=== PATIENT | male | born 1985 | race Caucasian/White ===

== ENCOUNTER → 2024-02-27 | Outpatient (CLI) | payer OTHER, SELFPAY ==
[2024-02-27 16:50] LABS: Absolute Lymphocyte Count 3.21 X10^3/uL (0.83-4.51); Absolute Neutrophil Count 5.5 X10^3/uL (2.0-7.7); Basophil# 0.07 X10^3/uL; Basophil% 0.7 % (0-1); Eosinophil# 0.33 X10^3/uL; Eosinophils% 3.3 % (0-5); Hematocrit 49.3 % (40-54); Hemoglobin 16.1 g/dL (13.0-16.5); Lymphocyte # 3.21 X10^3/ul (0.83-4.51); Lymphocyte % 31.9 % (19-41); Mean Corp Hgb Conc 32.7 g/dL (32-36); Mean Corpuscular Hgb 30.7 pg (27.0-32.0); Mean Corpuscular Volume 93.9 fL (80-94); Monocyte# 0.89 X10^3/uL; Monocyte% 8.9 % (0-10); NRBC Flagged by Analyzer 0 % (0-5); Neutrophil # 5.53 X10^3/uL (2.7-7.7); Platelet Count 277 K/mm3 (150-450); RBC Distribution Width CV 13.2 % (11.6-14.6); RBC Distribution Width SD 45.3 fl (35.1-43.9); Red Blood Count 5.25 M/mm3 (4.6-6.2); White Blood Count 10.1 K/mm3 (4.4-11.0)
[2024-02-27 17:12] LABS: ALB/GLOB Ratio 1.1 RATIO (0.9-2.4); AST(SGOT) 24 U/L (15-37); Alanine Aminotransfer ALT/SGPT 47 U/L (16-61); Albumin, Serum 3.9 g/dL (3.2-5.0); Alkaline Phosphatase 56 U/L (45-117); Anion Gap 6 (5-15); BUN 16 mg/dL (7-18); BUN/Creat Ratio 12.8 RATIO (10-20); Calcium,Total 9.1 mg/dL (8.5-10.1); Chloride 108 mmol/L (98-107); Cholesterol 217 mg/dL (200); Creatinine, Serum 1.25 mg/dL (0.70-1.30); EST Glomerular Filtration Rate 69 mL/min (>60); Est Glom Filt Rate - Afr Amer 84 mL/min (>60); Globulin 3.6 g/dL (2.2-4.2); Glucose 88 mg/dL (74-106); High Density Lipoprotein 53 mg/dL; Potassium 3.7 mmol/L (3.5-5.1); Protein, Total 7.5 g/dL (6.4-8.2); Sodium Level 140 mmol/L (136-145); Thyroid Stim Hormone (TSH) 0.804 uIU/mL (0.358-3.740); Triglycerides 290 mg/dL; Very Low Density Lipoprotein 58 mg/dL (5-40)
[2024-02-27 17:14] LABS: Vitamin B12 426 pg/mL (211-911); Vitamin D,25 Hydroxy 13.4 ng/mL
[2024-02-27 17:25] LABS: Hemoglobin A1c 5.5 % (3.8-5.6)
--- OUTSIDE RECORDS SUMMARY | 2024-02-27 18:39 | XMS RPT_ITS | CCD ---
Author Organization [facility] Care Team Providers Care Medical Resident Name Role Phone SAGE PIMENTEL, DR AJAY Jaramillo Primary Care Physician JOHN TRIMMING DEPARTMENT BLOCKER-EARTH OBSERVATIONS CHIEF SCIENTIST, NURY Godoy Attending Freida ilwenceslao CAZARES MD, DR AJAY Jaramillo Primary Care Mike HAMLINEARTH OBSERVATIONS CHIEF SCIENTIST, NIKUNJ Cody Attending Helder CAZARES MD, DR AJAY Jaramillo Primary Care Mike WALKER, NIKUNJ Cody Attending Helder CAZARES MD, DR AJAY Jaramillo Primary Care Vincent Randolph PA-C Unavailable Urologist Provider Unavailable Unavailable Vitaly PIMENTEL, Dr. Jackson ([place] [facility]) A Unavail able Ivana PIMENTEL, Dr. Pieter Gamino Unavailable Rosalba Roper LPN Unavailable Farheen Woods MA Unavailable Unavailable Sina Waddell MD Unavailable Monique Olea MA Unavailable Unavailable Celeste Whitney RN Unavailable Unavaila sue Calvillo LPN, Danial Unavailable Unavailable Mercy Mei CMA Unavailable Unavailable Leatha Lilly MA Unavailable Unavailable Ajay Cazares MD Unavailable [phone] Unavailable Unavailable VINCENT BANKS Attending Unavailable AJAY CAZARES Consulting Unavailable VINCENT BANKS Admitting Unavailable VINCENT BANKS Primary Care Unavailable PROVIDER, UNKNOWN Consulting Unavailable PROVIDER, UNKNOWN Consulting Unavailable PROVIDER, UNKNOWN Consulting Unavailable Allergies Allergy Classification Reported Allergen(s) Allergy Type Date of Onset Reaction(s) Facility (8 sources) Cortisone *CORTICOSTEROIDS* 11-03-2020 [facility], [facility].; [facility]. Medications Current Medications Medication Drug Class(es) Dates Sig (Normalized) Sig (Original) hydrOXYzine hydrochloride 10 mg oral tablet (11 sources) Antihistamine Start: 06-20-2022 hydrOXYzine hydrochloride 10 mg oral tablet Dose : 20 mg = 2 tab(s), Oral, QID, PRN for anxiety, # 80 tab(s), 0 Refill(s) Start Date: 06/20/22 Status: Ordered Start: 06-07-2022 take 1 tablet by claudio th every six hours as needed for anxiety hydrOXYzine HCl 50 MG Oral Tablet ; 1 (one) Tablet Q6 hours PRN anxiety for 0 days Quantity: 30 {Tablet} Refills: 2 Ordered: 07-Jun-2022 AMY Banks Start: 07-Jun-2022 Completed/Discontinued Medications Medication Drug Class(es) Dates Sig (Normalized) Sig (Original) amoxicillin 500 mg oral tablet (8 sources) Penicillin-class Antibacterial Start: 07-05-2018 End: 07-15-2018 take 2 tablets by mouth once daily Amoxicillin 500 MG Oral Tablet ; 2 (two) Tablet once daily for 10 days Quantity: 20 {Tablet} Refills: 0 Ordered: 05-Jul-2018 MD Sina Waddell Start: 05-Jul-2018 End: 15-Jul-2018 Status: Inactive Comments: pharmacist: once daily strep protocol Comment on above: pharmacist: once jeny ly strep protocol amoxicillin 875 mg / clavulanate 125 mg oral tablet (8 sources) Penicillin-class Antibacterial Start: 01-30-2022 End: 02-06-2022 take 1 tablet by mouth twice daily Amoxicillin-Pot Clavulanate 875-125 MG Oral Tablet ; 1 (one) Tablet two times daily for 7 days Quantity: 14 {Tablet} Refills: 0 Ordered: 30-Jan-2022 AHMET Whitney Start: 30-Jan-2022 End: 06-Feb-2022 Status: Inactive amphetamine aspartate 2.5 mg / amphetamine sulfate 2.5 mg / dextroamphetamine saccharate 2.5 mg / dextroamphetamine sulfate 2.5 mg oral tablet (9 sources) Central Nervous System Stimulant Start: 12-13-2022 End: 01-12-2023 AdderalL 10 mg tablet ; 1 (one) Tablet daily for 30 days Quantity: 30 {Tablet} Refills: 0 Ordered: 13-Dec-2022 AMY Banks Start: 13-Dec-2022 End: 12-Jan-2023 Status: Inactive Comments: [facility] 12/06/2022 Start: 07-30-2022 take 1 tablet by claudio twice daily amphetamine-dextroamphetamine 10 mg oral tablet TAKE ONE TABLET BY MOUTH TWICE DAILY Start Date: 07/30/22 Status: Ordered Comment on above: [facility] 12/06/2022 buPROPion hydrochloride 75 mg oral tablet (16 sources) Aminoketone Start: End: 2 take 1 tablet by mouth once daily buPROPion HCl ER (XL) 150 MG Oral Tablet Extended Release 24 Hour ; 1 (one) Tablet daily for 0 days Quantity: 90 {Tablet} Refills: 3 Ordered: 02-Nov-2021 DONALD Mei Start: 03-Nov-2020 End: 02-Nov-2021 Status: Discontinued Start: 11-03-2020 End: 11-02-2021 take 1 tablet by mouth once daily buPROPion HCl 75 MG Oral Tablet ; 1 (one) Tablet daily for 0 days Quantity: 90 {Tablet} Refills: 3 Ordered: 02-Nov-2021 DONALD Mei Start: 03-Nov-2020 End: 02-Nov-2021 Status: Discontinued busPIRone hydrochloride 10 mg oral tablet (10 sources) Start: 06-07-2022 End: 07-16-2022 take 1 tablet by mouth twice daily busPIRone HCl 10 MG Oral Tablet ; 1 (one) Tablet twice a day for 0 days Quantity: 30 {Tablet} Refills: 2 Ordered: 16-Jul-2022 AHMET Whitney Start: 07-Jun-2022 End: 16-Jul-2022 Status: Discontinued citalopram 20 mg oral tablet (8 sources) Serotonin Reuptake Inhibitor take 1 tablet by mouth once daily Citalopram Hydrobromide 20 MG Oral Tablet ; 1 daily (20 MG) Status: Inactive oxybutynin chloride 5 mg oral tablet (3 sources) Cholinergic Muscarinic Antagonist Start: 06-20-2022 End: 06-20-2022 oxybutynin 5 mg oral tablet Dose : 5 mg = 1 tab(s), Oral, Daily, # 30 tab(s), 3 Refill(s), Pharmacy: [id number], 180.3, cm, 06/20/22 9:59:00 EST, Height Start Date: 06/20/22 Stop Date: 06/20/22 Status: Ordered sulfamethoxazole 800 mg / trimethoprim 160 mg oral tablet (8 sources) Dihydrofolate Reductase Inhibitor Antibacterial, Sulfonamide Antimicrobial Start: 11-02-2021 End: 11-12-2021 take 1 tablet by mouth twice daily Sulfamethoxazole- Trimethoprim 800-160 MG Oral Tablet ; 1 (one) Tablet twice a day for 10 days Quantity: 20 {Tablet} Refills: 0 Ordered: 02-Nov-2021 AMY Banks Start: 02-Nov-2021 End: 12-Nov-2021 Status: Inactive tamsulosin hydrochloride 0.4 mg oral capsule (8 sources) alpha-Adrenergic Adalgisa Start: 11-15-2021 End: 12-15-2021 take 1 capsule by mouth once daily Tamsulosin HCl 0.4 MG Oral Capsule ; 1 (one) Capsule daily for 30 days Quantity: 30 {Capsule} Refills: 0 Ordered: 15-Nov-2021 AMY Banks Start: 15-Nov-2021 End: 15-Dec-2021 Status: Inactive Problems Active Problems Problem Classification Problem Date Documented Da te Episodic/Chronic Anxiety disorders (20 sources) Generalized anxiety disorder; Translations: [Generalized anxiety disorder] 07-22-2023 Chronic Calculus of urinary tract (20 sources) Ureteric stone; Translations: [Kidney stone] 06-20-2022 Episodic Disorders usually diagnosed in infancy, childhood, or adolescence (20 sources) Adult attention deficit hyperactivity disorder ; Translations: [Other specified behavioral and emotional disorders with onset usually occurring in childhood and adolescence] 07-22-2023 Chronic Genitourinary symptoms and ill-defined conditions (20 sources) Nocturia; Translations: [Dysuria] 07-30-2022 Episodic Headache; including migraine (16 sources) Headache; Translations: [Headache] 07-22-2023 Episodic Immunizations and screening for infectious disease (20 sources) Patient encounter status; Translations: [Encounter for immunization] 07-16-2022 Episodic Inflammatory conditions of male genital organs (16 sources) Epididymitis; Translations: [Epididymitis] 07-22-2023 Episodic Mood disorders (20 sources) Depressive disorder; Translations: [Depressive disorder, not elsewhere classified] 07-22-2023 Chronic Other ear and sense organ disorders (8 sources) Impacted cerumen of bilateral ears; Translations: [Impacted cerumen, bilateral] 11-03-2020 Episodic Other lower respiratory disease (16 sources) Snoring; Translations: [Snoring] 07-22-2023 Episodic Other nervous system disorders (3 sources) Chronic pain in male pelvis 06-20-2022 Chronic Other nervous system disorders (16 sources) Bilateral carpal tunnel syndrome; Translations: [Carpal tunnel syndrome, bilateral upper limbs] 07-22-2023 Chronic Other nutritional; endocrine; and metabolic disorders (16 sources) Body mass index 30+ - obesity; Translations: [Body mass index (BMI) 38.0-38.9, adult] 07-22-2023 Chronic Other nutritional; endocrine; and metabolic disorders (20 sources) Body mass index 40+ - severely obese; Translations: [Body mass index (BMI) 40.0-44.9, adult] 11-03-2020 Chronic Other nutritional; endocrine; and metabolic disorders (16 sources) Obesity; Translations: [Obesity, unspecified] 07-22-2023 Chronic Other upper respiratory disease (16 sources) Disorder of nasal sinus; Translations: [Unspecified disorder of nose and nasal sinuses] 07-22-2023 Episodic Other upper respiratory infections (8 sources) Acute pharyngitis; Translations: [Acute pharyngitis, unspecified] 07-05-2018 Episodic Residual codes; unclassified (16 sources) History of vaccination; Translations: [Personal history of other drug therapy] 07-22-2023 Episodic Comment on above: Moderna Residual codes; unclassified (20 sources) FH: Polycystic kidney; Translations: [Family history of polycystic kidney] 07-22-2023 Episodic Residual codes; unclassified (16 sources) Amnesia; Translations: [Other amnesia] 07-22-2023 Episodic Residual codes; unclassified (8 sources) Non-smoker; Translations: [Other specified health status] 07-22-2023 Episodic Residual codes; unclassified (8 sources) Delirium; Translations: [Disorientation, unspecified] 01-25-2022 Episodic Unclassified (8 sources) Follow up for multiple chronic conditions - The patient is here for follow-up of anxiety, depression and other condition(s) (ADD). The patient always takes the prescribed medications. No side effects noted (meds are as needed). The patient has an active lifestyle but no regular exercise program. The patient's dietary compliance is good with close adherance to recommendations. The patient states that weight has decreased (down 6lbs) and in general mood has improved. 12-13-2022 Past or Other Problems Problem Classification Problem Date Documented Da te Episodic/Chronic Hepatitis (8 sources) Hepatitis 06-07-2022 Mood disorders (8 sources) Mood disorders 11-03-2020 Unclassified (8 sources) Snoring - Symptoms include snoring, nocturnal gasping and witnessed nocturnal apnea. The snoring is described as extremely loud, crescendo, gurgling and disruptive to the bed partner. This is described as severe and worsening. Risk factors include obesity. Note for Snoring : Patient does note that his has indicated several episodes of apnea during sleep where the patient will stop breathing before a sudden inspiration. Patient notes concern for increased tiredness as a result of disturbed sleep. Patient also notes that his urinary symptoms will also contribute to his nightly awakenings (urinary frequency and urgency), these issues are currently being managed by his urologist who encouraged patient to obtain a sleep study. Patient also notes concern for obesity stating that he believes his snoring and sleep have worsened as a result of weight gain. Patient states he has tried on and off to lose weight with regular exercise and various diets with minimal to no success over the past 3 years. Patient would like to discuss medication options if possible. Patient states that he previously took Adderall for ADHD which helped his difficulty with attention as well as assisted with weight loss, however he was unable to tolerate adverse effects of irritability. 07-22-2023 Unclassified (8 sources) Follow up for chronic condition - The patient is here for follow-up of anxiety and depression. The patient has stopped the recommended medications (he recently stopped taking buspirone due to feeling that he was zoned out and was just there, also he had suicidal thoughts but no attempts. Appetite was increased and he gained some weight. He noticed a lack of motivation and was more depressed. 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 The patient engages in regular exercise program 1-3 times per week (is going back to the gym about 3 times a week). The patient's out of office blood pressure checks occur frequently (been normal about 120-130/80-90). The patient states that there is no recent angina or dyspnea, there are no vision changes or weakness and they do not have headaches. Note for Chronic condition follow-up : Years ago, he was on Adderall 10mg. He had leftover pills. He started taking the Adderall 2 pills daily about 1 week ago. States that it is a night and day difference . He has more energy and feels more like myself and able to focus on what I need to do . He sees a therapist every few months. 07-16-2022 Unclassified (8 sources) F/U meds - Pt is not taking any meds now. Pt said it has been over a year since taking medication. Pt went back to school and needs something to keep himself focused on his school. Pt wants a refill on meds or to maybe change medication. 05-18-2022 Unclassified (8 sources) Well adult male - The patient feels well with no complaints, has good energy level and is sleeping well. The current method of contraception is condom-male. The patient has a balanced diet and takes supplemental vitamins. The patient exercises weekly (cross fit 4-5 week). The patient sleeps 6 hours per night. The patient's libido is absent. 04-05-2022 Unclassified (8 sources) Headache - The onset of the headache has been acute and has been occurring in a persistent pattern for weeks. The course has been increasing in severity. The headache is characterized as deep pain. The headache is described as being located in the frontal area. Note for Headache : Episode of confusion and agitation yesterday for about 30 minutes. Denies slurred speech or LOC. 01-25-2022 Unclassified (8 sources) Follow up - Here for follow up epididmytis. Continues to have the urgency of urinating. The symptoms are worse at bedtime. 11-16-2021 Unclassified (8 sources) UTI - Symptoms include urinary frequency (worst at night), malodorous urine (Saturday into Saturday) and flank pain, but do not include dysuria, urinary urgency, hematuria, dark urine, abdominal pain or back pain. The pain is located in the left flank and in the right flank. The patient describes the pain as burning. Onset was gradual 1 month(s) ago. There is no known event that preceded symptom onset. The patient describes this as worsening. Associated symptoms do not include fever, chills, nausea, vomiting, urinary incontinence, urinary retention, urinary hesitancy, nocturia, urethral discharge or vaginal discharge. Risk factors do not include indwelling catheter, fecal incontinence, current , menopause or diaphragm use. Note for UTI : feeling dizzy, lack of energy and lack of sex drive. 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 The patient takes no supplemental vitamins & iron. The patient exercises every other day and daily (Crossfit and running). The patient sleeps 4 hours per night. 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 The patient does not exercise. 12-23-2019 Unclassified (8 sources) Hand pain - The onset of the hand pain has been gradual and has been occurring in a persistent pattern for 2 years. The course has been increasing. The hand pain is characterized as a moderate. Note for Hand pain : -Numbness and tingling in both hands. R>L. Right hand dominant. 08-27-2018 Unclassified (8 sources) Cold Symptoms - Symptoms include nasal congestion, runny nose, ear pain, ear fullness, sore throat, scratchy throat, dry cough, productive cough, fever (low grade), chills and headache. The onset was gradual 2 day(s) ago. The symptoms occur constantly. The patient describes this as moderate in severity and worsening. Current treatment includes an oral decongestant. Risk factors do not include child in daycare or smoking. The patient has been exposed to an individual with similar symptoms and an individual with strep, but has not been exposed to an individual with a cough or an individual with an upper respiratory infection. 07-05-2018 Unclassified (8 sources) Well adult male - The patient feels well with no complaints, has good energy level and is sleeping well. The patient takes no supplemental vitamins & iron. The patient exercises 3 - 4 times per week. The patient sleeps 8 hours per night. 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 The patient takes no supplemental vitamins & iron. The patient exercises every other day and daily (Crossfit and running). The patient sleeps 4 hours per night. 11-03-2020 Results Test Name Value Interpretation Reference Range Facility US RENALon 07-20-2022 US RENAL ORIGINAL EXAMINATION: LIMITED RETROPERITONEAL ULTRASOUND07/18/2022 3:17 pm Ultrasound retroperitoneum Complete: Attention Urinary tract COMPARISON: None available HISTORY: ORDERING SYSTEM PROVIDED HISTORY: Reason for Exam: follow-up ureteral stone, history of left ureteral stone, follow-up FINDINGS: Right kidney: 12.6 x 5.8 x 5.6 cm Left kidney: 12.2 x 5.7 x 5.7 cm The kidneys are normal in cortical thickness and echogenicity. No pelvocaliectasis, complex cystic or solid mass is seen. No renal stone is visualized . There is no free fluid seen in the abdomen. Urinary bladder is less than optimally distended but otherwise unremarkable. No abnormal wall thickening or stone. Likely artifact versus minimal debris in its dependent portion. Bladder volume is 137 cc. Postvoid volume is only 2 cc. The prostate is not significantly enlarged.. IMPRESSION: No obstruction or acute abnormality in the kidneys. . Interpreted by: Jovan Mckeon MD Preliminary Report By: Jovan Mckeon MD Electronically signed By Jovan Mckeon MD Dictated Date: 07/20/2022 8:44:46 AM Prelim Date: 07/20/2022 8:46:12 AM Sign Date: 07/20/2022 8:46:12 AM Ordering Provider: NIKUNJ Pendleton [facility] ([place]) No Panel Informationon 04-24 SKIN TEST INTRADERMAL TB Normal [facility] HEPATITIS B SURFACE AB IMMUN ITY, QNon 12-15-2022 HEPATITIS B SURFACE AB IMMUNITY, QN <5 Low > OR = 10 [facility] Comment on above: Result Comment: Patient does not have immunity to hepatitis B virus. For additional information, please refer to http://Poppin.[employer] Media/faq/IGI185 (This link is being provided for informational/ educational purposes only). Performed By: #### [id number] #### [facility] [address], [address] [place] [address] Karate Teacher: David Scott MD #### [id number] #### [facility], [address] [place] [address] Karate Teacher: Misty Grossman MD,PhD,GALEN MEASLES, MUMPS, AND RUBELLA (MMR) AB (IGG) PANEL, IMMUNE STATUSon 04-12-2022 MEASLES AB (IGG), IMMUNE STATUS 62.90 AU/mL Normal [facility] Comment on above: Result Comment: AU/m L Interpretation ----- <13.50 Not consistent with immunity 13.50-16.49 Equivocal >16.49 Consistent with immunity The presence of measles IgG suggests immunization or past or current infection with measles virus. For additional information, please refer to http://Poppin.CWR Mob[employer]/faq/GMD852 (This link is being provided for informational/ educational purposes only.) Performed By: #### [id number] #### [facility] [address], [address] [place] [address] Karate Teacher: David Scott MD #### [id number] #### [facility], [address] [place] [address] Karate Teacher: Misty Grossman MD,PhD,GALEN MUMPS VIRUS AB (IGG), IMMUNE STATUS <9.00 Low [facility] Comment on above: Result Comment: AU/m L Interpretation ------- <9.00 Not consistent with immunity 9.00-10.99 Equivocal >10.99 Consistent with immunity The presence of mumps IgG antibody suggests immunization or past or current infection with mumps virus. Performed By: #### [id number] #### [facility] [address], [address] [place] [address] Karate Teacher: David Scott MD #### [id number] #### [facility], [address] [place] [address] Karate Teacher: Misty Grossman MD,PhD,GALEN RUBELLA AB (IGG), IMMUNE STATUS 3.27 Index Normal [facility] Comment on above: Result Comment: Inde x Interpretation ----- <0.90 Not consistent with immunity 0.90-0.99 Equivocal > or = 1.00 Consistent with immunity The presence of rubella IgG antibody suggests immunization or past or current infection with rubella virus. Performed By: #### [id number] #### [facility] [address], [address] [place] [address] Karate Teacher: David Scott MD #### [id number] #### [facility], [address] [place] [id number] Karate Teacher: Misty Grossman MD,PhD,GALEN VARICELLA ZOSTER VIRUS AB (I MMUNITY SCR),ACIF (S)on 04-12-2022 VARICELLA ZOSTER VIRUS AB (IMMUNITY SCR),ACIF (S) > or = 1:4 Normal [facility] Comment on above: Result Comment: REFERENCE RANGE: > or = 1:4 <1:4 Antibody Not Detected - evidence for susceptibility to VZV infection. > or = 1:4 Antibody Detected - evidence for immunity against VZV infection. A positive titer (greater than or equal to 1:4) indicates a history of VZV infection or vaccination. In infected individuals, this test is usually positive within 2 days after the onset of rash and is therefore positive for life. The absence of detectable antibody may indicate susceptibility to VZV infection. This test was developed and its analytical performance characteristics have been determined by [employer]. It has not been cleared or approved by FDA. This assay has been validated pursuant to the CLIA regulations and is used for clinical purposes. Performed By: #### [id number] #### [facility] [address], [address] [place] [address] Karate Teacher: David Scott MD #### [id number] #### [facility], [address] [place] [address] Karate Teacher: Misty Grossman MD,PhD,GALEN No Panel Informationon 04-10 SKIN TEST INTRADERMAL TB Normal [facility]; [facility] No Panel Informationon 04-05 HEPATITIS B SURFACE AB IMMUNITY, QN <5 Abnormal [facility]; [facility]. MEASLES AB (IGG), IMMUNE STATUS 62.90 AU/mL Normal [facility]; [facility], [facility]. MUMPS VIRUS AB (IGG), IMMUNE STATUS <9.00 Abnormal [facility]; [facility], [facility]. RUBELLA AB (IGG), IMMUNE STATUS 3.27 {Index} Normal [facility]; [facility]. VARICELLA ZOSTER VIRUS AB (IMMUNITY SCR),ACIF (S) > or = 1:4 Normal [facility].; [place] [facility]. Laboratory - Chemistry and C hemistry - challengeon 11-15-2021 Bilirubin Ql (U) Negative Normal [facility], [facility].; [facility], [facility]. Ketones Ql (U) Negative Normal [facility].; [place] [facility], [facility]. pH (U) 7.0 [pH] Normal [facility].; [facility], [facility]. Specific gravity (U) [Rel density] 1.025 Normal [facility], [facility].; [place] [employer], [facility]. Urobilinogen Qn (U) 0.2 mg/dL Normal [facility] [facility], [facility].; [facility], [facility]. Laboratory - Hematology and Cell countson 11-15-2021 Hemoglobin Ql (U) Negative Normal [facility].; [employer]. Laboratory - Specimen inform ationon 11-15-2021 Appearance (U) Clear Normal [facility].; [email or web address], [facility]. Color (U) Yellow Normal [place] [employer].; [employer]. Laboratory - Urinalysison Glucose Test strip (U) [Mass/Vol] Negative Normal [place] [employer].; [email or web address], [facility]. Leukocyte esterase Test strip Ql (U) Negative Normal [place] [employer].; [employer]. Nitrite Ql (U) Negative Normal [facility].; [employer]. Protein Ql (U) Negative Normal [facility].; [employer]. PSA, TOTALon 11-03-2021 PSA, TOTAL 0.60 ng/mL Normal < OR = 4.00 [facility] Comment on above: Result Comment: The total PSA value from this assay system is standardized against the WHO standard. The test result will be approximately 20% lower when compared to the equimolar-standardized total PSA ([place]). Comparison of serial PSA results should be interpreted with this fact in mind. This test was performed using the Siemens chemiluminescent method. Values obtained from different assay methods cannot be used interchangeably. PSA levels, regardless of value, should not be interpreted as absolute evidence of the presence or absence of disease. Performed By: #### [id number] #### [facility] [address], [address] [place] [id number] Karate Teacher: David Scott MD Laboratory - Chemistry and C hemistry - challengeon 11-02-2021 Bilirubin Ql (U) Negative Normal [facility].; [employer]. Ketones Ql (U) Negative Normal [facility].; [employer] pH (U) 5.5 [pH] Normal [employer].; [employer], [facility]. Specific gravity (U) [Rel density] 1.030 Abnormal [employer].; [employer]. Urobilinogen Qn (U) 0.2 mg/dL Normal [facility].; [employer]. Laboratory - Hematology and Cell countson 11-02-2021 Hemoglobin Ql (U) Negative Normal [facility] [employer].; [employer]. Laboratory - Specimen inform ationon 11-02-2021 Appearance (U) Clear Normal [facility].; [employer]. Color (U) Yellow Normal [facility] [employer].; [employer]. Laboratory - Urinalysison Glucose Test strip (U) [Mass/Vol] Negative Normal [facility] [employer].; [employer]. Leukocyte esterase Test strip Ql (U) Negative Normal [facility] [employer].; [email or web address], [facility]. Nitrite Ql (U) Negative Normal [facility].; [employer]. Protein Ql (U) Negative Normal [facility].; [email or web address], [facility]. No Panel Informationon 11-02 PSA, TOTAL 0.60 ng/mL Normal [facility] [employer] [facility].; [employer]. Laboratory - Chemistry and C hemistry - challengeon 12-23-2019 Calcium [Mass/Vol] 9.8 mg/dL Normal 8.6 - 10. 3 mg/dL [facility].; [email or web address], [facility]. Chloride [Moles/Vol] 104 mmol/L Normal 98 - 110 mmol/L [facility] [employer] [facility].; [employer]. Cholesterol [Mass/Vol] 202 mg/dL Abnormal [facility] [employer] [facility].; [email or web address], [facility]. Cholesterol in HDL [Mass/Vol] 54 mg/dL Normal [employer]etteRipple[employer] [facility].; [email or web address], [facility]. Cholesterol in LDL [Mass/Vol] 122 mg/dL Abnormal [facility] [employer] [facility].; [email or web address], [facility]. CO2 [Moles/Vol] 29 mmol/L Normal 20 - 32 mmol/L [facility].; [email or web address], [facility]. Creatinine [Mass/Vol] 1.10 mg/dL Normal 0.60 - 1.35 mg/dL [facility]; [facility], [facility] GFR/1.73 sq M.predicted among blacks MDRD (S/P/Bld) [Vol rate/Area] 102 mL/min/{1.73_m2} Normal [facility]; [facility], [facility] Glucose [Mass/Vol] 97 mg/dL Normal 65 - 99 mg/dL [facility]; [facility], [facility] Potassium [Moles/Vol] 4.4 mmol/L Normal 3.5 - 5.3 mmol/L [facility]; [facility], [facility] Sodium [Moles/Vol] 140 mmol/L Normal 135 - 146 mmol/L [facility]; [facility], [facility] Triglyceride [Mass/Vol] 146 mg/dL Normal [facility]; [facility], [facility] Urea nitrogen [Mass/Vol] 15 mg/dL Normal 7 - 25 mg/dL [facility]; [facility], [facility] Laboratory - Hematology and Cell countson 12-23-2019 HbA1c (Bld) [Mass fraction] 5.4 % Normal [facility]; [facility], [facility] No Panel Informationon 12-22 BUN/CREATININE RATIO NOT APPLICABLE Normal 6 - 22 [facility]; [facility], [facility] CHOL/HDLC RATIO 3.7 Normal [facility]; [facility] eGFR NON-AFR. MALDIVIAN 88 Normal [facility]; [facility], [facility] NON HDL CHOLESTEROL 148 Abnormal [facility]; [facility], [facility] Vital Signs Date Time Vital Sign Value Performing Clinician Facility 07-22-2023 08:15-0400 Body height 179.07 cm Danial Calvillo LPN [facility].; [facility], [facility] 07-22-2023 08:15-0400 Body mass index (BMI) [Ratio] 42.58 kg/m2 Danial Calvillo LPN [facility].; [facility], [facility] 07-22-2023 08:15-0400 Body surface area Derived from formula 2.5 m2 Danial Calvillo RUBIO [facility], [facility].; [facility], [facility]. 07-22-2023 08:15-0400 Body weight 136.53 kg Danial Calvillo LPN [facility], [facility].; [facility], [facility]. 07-22-2023 08:15-0400 Diastolic blood pressure 70 mm[Hg] Danial Calvillo LPN [facility] [employer] [facility], Inc[facility] Comment on above: Patient Position: Sitting; Cuff Location : Left Arm; Cuff Size: Standard 07-22-2023 08:15-0400 Heart rate 64 /min Danial Calvillo [facility], [facility].; [facility] [employer] [facility], [facility]. Comment on above: Pattern: Regular 07-22-2023 08:15-0400 Systolic blood pressure 107 mm[Hg] Danial Calvillo ANTENNA ENGINEER [facility], [facility].; [facility] [employer] [facility], [facility]. Comment on above: Patient Position: Sitting; Cuff Location : Left Arm; Cuff Size: Standard 12-13-2022 07:59-0400 Body height 179.07 cm Farheen Woods MA [facility], [facility].; [facility] [employer] [facility], [facility]. 12-13-2022 07:59-0400 Body mass index (BMI) [Ratio] 41.59 kg/m2 Farheen Woods MA [facility], [facility].; [facility] [employer] [facility], [facility]. 12-13-2022 07:59-0400 Body surface area Derived from formula 2.47 m2 Farheen Woods MA [facility], [facility].; [facility], [facility]. 12-13-2022 07:59-0400 Body weight 133.36 kg Farheen Woods MA [facility], [facility].; [employer] [employer] [facility], [facility]. 12-13-2022 07:59-0400 Diastolic blood pressure 74 mm[Hg] Farheen Woods MA [facility], [facility].; [employer] [employer] [facility], [facility]. Comment on above: Patient Position: Sitting; Cuff Location : Left Arm; Cuff Size: Standard 12-13-2022 07:59-0400 Heart rate 59 /min Farheen Woods MA [facility], [facility].; BurnetteAl[employer] [facility]. Comment on above: Pattern: Regular 12-13-2022 07:59-0400 Systolic blood pressure 124 mm[Hg] Farheen Woods MA [facility].; [facility] [employer] [facility]. Comment on above: Patient Position: Sitting; Cuff Location : Left Arm; Cuff Size: Standard 07-16-2022 10:28-0400 Body height 179.07 cm Celeste Whitney RN [facility].; [facility] [employer] [facility] TownshipHy[facility] Pharmaceutical [facility]. 07-16-2022 10:28-0400 Body mass index (BMI) [Ratio] 42.58 kg/m2 Celeste Whitney RN [facility] Pharm[facility].; [facility] [employer] [facility] Pharm[facility]. 07-16-2022 10:28-0400 Body surface area Derived from formula 2.5 m2 Celeste Whitney RN [facility].; [place] [employer] [facility]. 07-16-2022 10:28-0400 Body weight 136.53 kg Celeste Whitney RN [facility] [employer] [facility].; [employer]. 07-16-2022 10:28-0400 Diastolic blood pressure 75 mm[Hg] Celeste Whitney RN [facility] [employer] [facility].; [employer]. Comment on above: Patient Position: Sitting; Cuff Location : Left Arm; Cuff Size: Standard 07-16-2022 10:28-0400 Heart rate 64 /min Celeste Whitney RN [facility] [employer] [facility].; [employer]. Comment on above: Pattern: Regular 07-16-2022 10:28-0400 Systolic blood pressure 118 mm[Hg] Celeste Whitney RN [facility] [employer] [facility].; [employer]. Comment on above: Patient Position: Sitting; Cuff Location : Left Arm; Cuff Size: Standard 06-07-2022 10:10-0500 Body height 179.07 cm Leatha Lilly [facility].; [facility] [employer]. 06-07-2022 10:10-0500 Body mass index (BMI) [Ratio] 42.72 kg/m2 Leatha Lilly MA [facility] [employer] [facility].; [facility] [employer]. 06-07-2022 10:10-0500 Body surface area Derived from formula 2.5 m2 Leatha Lilly MA [facility], [facility].; [facility] [employer] [facility] TownshipHy[facility] Pharmaceutical [facility]. 06-07-2022 10:10-0500 Body weight 136.99 kg Leatha Lilly MA [facility].; [facility] [employer] 06-07-2022 10:10-0500 Diastolic blood pressure 69 mm[Hg] Leatha Lilly MA [facility], [facility].; [place] [employer]. Comment on above: Patient Position: Sitting; Cuff Location : Left Arm; Cuff Size: Standard 06-07-2022 10:10-0500 Heart rate 58 /min Leatha Lilly MA [facility], [facility].; [employer] [employer]. Comment on above: Pattern: Regular 06-07-2022 10:10-0500 Systolic blood pressure 113 mm[Hg] Leatha Lilly MA [facility] Pharm[facility].; [place] [employer]. Comment on above: Patient Position: Sitting; Cuff Location : Left Arm; Cuff Size: Standard 05-18-2022 09:15-0500 Body height 179.07 cm Farheen Woods MA [facility], [facility].; [employer] [facility], [facility]. 05-18-2022 09:15-0500 Body mass index (BMI) [Ratio] 43 kg/m2 Farheen Woods MA [facility], [facility].; [place] [employer] 05-18-2022 09:15-0500 Body surface area Derived from formula 2.51 m2 Farheen Woods MA [facility] Pharmaceutical [facility].; [facility] [employer] [facility]. 05-18-2022 09:15-0500 Body weight 137.89 kg Farheen Woods MA [facility].; [place] [employer]. 05-18-2022 09:15-0500 Diastolic blood pressure 78 mm[Hg] Farheen Woods MA [facility].; [employer]. Comment on above: Patient Position: Sitting; Cuff Location : Left Arm; Cuff Size: Standard 05-18-2022 09:15-0500 Heart rate 48 /min Farheen Woods MA [facility].; [employer]. Comment on above: Pattern: Regular 05-18-2022 09:15-0500 Systolic blood pressure 127 mm[Hg] Farheen Woods MA [facility].; [employer]. Comment on above: Patient Position: Sitting; Cuff Location : Left Arm; Cuff Size: Standard 04-05-2022 09:50-0500 Body height 179.07 cm Monique Olea MA [facility] HospitalHybio Pharmaceutical Inc.; [employer]. 04-05-2022 09:50-0500 Body mass index (BMI) [Ratio] 42.58 kg/m2 Monique Olea [facility].; [employer]. 04-05-2022 09:50-0500 Body surface area Derived from formula 2.5 m2 Monique Olea MA [facility].; [email or web address], [facility]. 04-05-2022 09:50-0500 Body weight 136.53 kg Monique Olea MA [facility].; [employer]. 04-05-2022 09:50-0500 Diastolic blood pressure 84 mm[Hg] Monique Olea MA [facility].; [employer]. Comment on above: Patient Position: Sitting; Cuff Location : Left Arm; Cuff Size: Standard 04-05-2022 09:50-0500 Heart rate 51 /min Monique Olea MA [facility] [employer] [facility].; [employer]. Comment on above: Pattern: Regular 04-05-2022 09:50-0500 Systolic blood pressure 132 mm[Hg] Monique Olea MA [facility] [employer] [facility].; [employer]. Comment on above: Patient Position: Sitting; Cuff Location : Left Arm; Cuff Size: Standard 01-25-2022 13:49-0400 Body height 179.07 cm [facility] [employer] [facility].; [email or web address], [facility]. 01-25-2022 13:49-0400 Body mass index (BMI) [Ratio] 42.15 kg/m2 [facility] HospitalAl[facility] Energy [facility] TownshipHybio Pharmaceutical Inc.; [email or web address], Inc[employer] 01-25-2022 13:49-0400 Body surface area Derived from formula 2.49 m2 [facility] HospitalAltaRock Energy [facility].; [employer]. 01-25-2022 13:49-0400 Body weight 135.17 kg [facility].; [employer]. 01-25-2022 13:49-0400 Diastolic blood pressure 68 mm[Hg] [facility] [employer] [facility].; [employer]. Comment on above: Patient Position: Sitting; Cuff Location : Left Arm; Cuff Size: Large 01-25-2022 13:49-0400 Heart rate 71 /min [facility].; [employer]. Comment on above: Pattern: Regular 01-25-2022 13:49-0400 Systolic blood pressure 108 mm[Hg] [facility] [employer].; [employer]. Comment on above: Patient Position: Sitting; Cuff Location : Left Arm; Cuff Size: Large 11-15-2021 14:36-0400 Body height 179.07 cm [facility].; [employer]. 11-15-2021 14:36-0400 Body mass index (BMI) [Ratio] 42.44 kg/m2 [facility] [employer] [facility] [employer].; [employer], [facility]. 11-15-2021 14:36-0400 Body surface area Derived from formula 2.49 m2 [facility] [employer] [facility] [employer].; [employer]. 11-15-2021 14:36-0400 Body weight 136.08 kg [facility] [employer] [facility] [employer].; [employer]. 11-15-2021 14:36-0400 Diastolic blood pressure 70 mm[Hg] [facility] [employer].; [employer]. Comment on above: Patient Position: Sitting; Cuff Location : Right Arm; Cuff Size: Large 11-15-2021 14:36-0400 Heart rate 53 /min [facility].; [employer]. Comment on above: Pattern: Regular 11-15-2021 14:36-0400 Systolic blood pressure 130 mm[Hg] [facility].; [employer]. Comment on above: Patient Position: Sitting; Cuff Location : Right Arm; Cuff Size: Large 11-02-2021 14:39-0400 Body height 179.07 cm [facility].; [employer]. 11-02-2021 14:39-0400 Body mass index (BMI) [Ratio] 42.44 kg/m2 [facility].; [employer]. 11-02-2021 14:39-0400 Body surface area Derived from formula 2.49 m2 [facility] [employer] [facility].; [employer]. 11-02-2021 14:39-0400 Body temperature 98.9 [degF] [facility] [employer] [facility] [employer].; [employer]. Comment on above: Method: Tympanic 11-02-2021 14:39-0400 Body weight 136.08 kg [facility].; [employer]. 11-02-2021 14:39-0400 Diastolic blood pressure 75 mm[Hg] [facility] [employer] [facility].; [employer]. Comment on above: Patient Position: Sitting; Cuff Location : Left Arm; Cuff Size: Large 11-02-2021 14:39-0400 Heart rate 78 /min [facility] [employer] [facility].; [employer]. Comment on above: Pattern: Regular 11-02-2021 14:39-0400 Systolic blood pressure 118 mm[Hg] [facility] [employer] [facility].; [employer]. Comment on above: Patient Position: Sitting; Cuff Location : Left Arm; Cuff Size: Large 11-03-2020 09:34-0400 Body height 179.07 cm [facility] Work Phone: [facility] [employer] [facility].; [employer]. 11-03-2020 09:34-0400 Body mass index (BMI) [Ratio] 38.19 kg/m2 [facility] Work Phone: [place] [employer].; [employer]. 11-03-2020 09:34-0400 Body surface area Derived from formula 2.38 m2 Rosalba Judson ANTENNA ENGINEER Work Phone: [place] [employer].; [employer]. 11-03-2020 09:34-0400 Body weight 122.47 kg Rosalba Judson ANTENNA ENGINEER Work Phone: [employer].; [employer]. 11-03-2020 09:34-0400 Diastolic blood pressure 82 mm[Hg] Rosalba Judson ANTENNA ENGINEER Work Phone: [employer].; [employer]. Comment on above: Patient Position: Sitting; Cuff Location : Left Arm; Cuff Size: Large 11-03-2020 09:34-0400 Heart rate 69 /min Rosalba Judson ANTENNA ENGINEER Work Phone: [employer] [employer]; [employer]. Comment on above: Pattern: Regular 11-03-2020 09:34-0400 Systolic blood pressure 136 mm[Hg] Rosalba Judson ANTENNA ENGINEER Work Phone: [place] [employer].; [employer]. Comment on above: Patient Position: Sitting; Cuff Location : Left Arm; Cuff Size: Large 12-23-2019 09:44-0400 Body height 179.07 cm Rosalba Judson ANTENNA ENGINEER Work Phone: [employer].; [employer]. 12-23-2019 09:44-0400 Body mass index (BMI) [Ratio] 42.3 kg/m2 Rosalba Judson ANTENNA ENGINEER Work Phone: [employer].; [employer]. 12-23-2019 09:44-0400 Body surface area Derived from formula 2.49 m2 Rosalba Judson ANTENNA ENGINEER Work Phone: [employer].; [employer]. 12-23-2019 09:44-0400 Body weight 135.63 kg Rosalba Judson ANTENNA ENGINEER Work Phone: [employer].; [employer]. 12-23-2019 09:44-0400 Diastolic blood pressure 62 mm[Hg] Rosalba Roper LPN Work Phone: [employer].; [employer]. Comment on above: Patient Position: Sitting; Cuff Location : Left Arm; Cuff Size: Large 12-23-2019 09:44-0400 Heart rate 57 /min Rosalba Roper LPN Work Phone: [employer].; [employer]. Comment on above: Pattern: Regular 12-23-2019 09:44-0400 Systolic blood pressure 117 mm[Hg] Rosalba Roper LPN Work Phone: [employer].; [employer]. Comment on above: Patient Position: Sitting; Cuff Location : Left Arm; Cuff Size: Large 08-27-2018 15:22-0400 Body height 179.07 cm Rosalba Roper ANTENNA ENGINEER Work Phone: [employer].; [employer]. 08-27-2018 15:22-0400 Body mass index (BMI) [Ratio] 41.02 kg/m2 Rosalbazachary Roper ANTENNA ENGINEER Work Phone: [employer].; [employer]. 08-27-2018 15:22-0400 Body surface area Derived from formula 2.46 m2 Rosalba Judson ANTENNA ENGINEER Work Phone: [employer].; [employer]. 08-27-2018 15:22-0400 Body weight 131.54 kg Rosalba Judson ANTENNA ENGINEER Work Phone: [employer].; [employer]. 08-27-2018 15:22-0400 Diastolic blood pressure 83 mm[Hg] Rosalba Judson ANTENNA ENGINEER Work Phone: [employer].; [employer]. Comment on above: Patient Position: Sitting; Cuff Location : Left Arm; Cuff Size: Standard 08-27-2018 15:22-0400 Systolic blood pressure 128 mm[Hg] Rosalba Roper LPN Work Phone: [employer]; [employer]. Comment on above: Patient Position: Sitting; Cuff Location : Left Arm; Cuff Size: Standard 07-05-2018 08:29-0500 Body height 179.07 cm Luke Vida PA-C Work Phone: [employer]; [employer]. 07-05-2018 08:29-0500 Body mass index (BMI) [Ratio] 41.87 kg/m2 Luke Vida PA-C Work Phone: [employer]; [employer]. 07-05-2018 08:29-0500 Body surface area Derived from formula 2.48 m2 Luke Vida PA-C Work Phone: [employer]; [employer]. 07-05-2018 08:29-0500 Body temperature 100.9 [degF] Luke Vida PA-C Work Phone: [employer].; [employer]. 07-05-2018 08:29-0500 Body weight 134.27 kg Luke Vida PA-C Work Phone: [employer]; [employer]. 07-05-2018 08:29-0500 Diastolic blood pressure 106 mm[Hg] Luke Vida PA-C Work Phone: [employer].; [employer]. Comment on above: Patient Position: Sitting; Cuff Location : Left Arm; Cuff Size: Standard 07-05-2018 08:29-0500 Heart rate 109 /min Luke Vida PA-C Work Phone: [employer]; [employer] Comment on above: Pattern: Regular 07-05-2018 08:29-0500 Inhaled oxygen concentration 20 % Luke Vida PA-C Work Phone: [employer].; [employer]. Comment on above: Room air 07-05-2018 08:29-0500 Inhaled oxygen concentration 21 % Luke Vida PA-C Work Phone: [employer].; [employer]. Comment on above: Room air 07-05-2018 08:29-0500 SaO2% (BldA) [Mass fraction] 99 % LuMeizuVida PA-C Work Phone: [employer].; [employer]. 07-05-2018 08:29-0500 Systolic blood pressure 141 mm[Hg] Luke Vida PA-C Work Phone: [employer].; [employer]. Comment on above: Patient Position: Sitting; Cuff Location : Left Arm; Cuff Size: Standard 05-28-2018 14:22-0500 Body height 179.07 cm [employer] Work Phone: [employer]; [employer]. 05-28-2018 14:22-0500 Body mass index (BMI) [Ratio] 41.87 kg/m2 [employer] Work Phone: [employer]; [employer]. 05-28-2018 14:22-0500 Body surface area Derived from formula 2.48 m2 [employer]albatimeplazza Work Phone: [employer]. 05-28-2018 14:22-0500 Body weight 134.27 kg Rosalba Revelens ANTENNA ENGINEER Work Phone: [employer]. 05-28-2018 14:22-0500 Diastolic blood pressure 78 mm[Hg] [employer]la[employer] ANTENNA ENGINEER Work Phone: [employer]; [employer]. Comment on above: Patient Position: Sitting; Cuff Location : Left Arm; Cuff Size: Large 05-28-2018 14:22-0500 Heart rate 63 /min Rosalba Roper ANTENNA ENGINEER Work Phone: [employer]; [employer] Comment on above: Pattern: Regular 05-28-2018 14:22-0500 Systolic blood pressure 137 mm[Hg] Rosalba Roper ANTENNA ENGINEER Work Phone: [employer]; [employer] Comment on above: Patient Position: Sitting; Cuff Location : Left Arm; Cuff Size: Large Encounters Encounter Date Encounter Type Care Provider Facility Start: 08-15-2023 ambulatory VINCENT BANKS [facility] Start: 07-22-2023 End: 07-22-2023 Office outpatient visit 25 minutes Luke Vida PA-C Work Phone: [employer] Start: 12-13-2022 End: 12-13-2022 Office outpatient visit 15 minutes Luke Vida PA-C Work Phone: [employer] Start: 07-30-2022 End: 07-31-2022 ambulatory NURY LOPEZ TRIMMING DEPARTMENT BLOCKER-EARTH OBSERVATIONS CHIEF SCIENTIST Facility:A Start: 07-30-2022 End: 07-30-2022 Patient encounter procedure NURY Godoy JOHN TRIMMING DEPARTMENT BLOCKER-EARTH OBSERVATIONS CHIEF SCIENTIST [facility] Start: 07-18-2022 End: 07-19-2022 ambulatory NIKUNJ Escobar AGATHA TRIMMING DEPARTMENT BLOCKER-EARTH OBSERVATIONS CHIEF SCIENTIST Facility:B Start: 07-18-2022 End: 07-18-2022 Patient encounter procedure NIKUNJ M AGATHA TRIMMING DEPARTMENT BLOCKER-EARTH OBSERVATIONS CHIEF SCIENTIST [facility] Start: 07-16-2022 End: 07-16-2022 Office outpatient visit 15 minutes Luke Vida PA-C Work Phone: [employer] Start: 06-20-2022 End: 06-21-2022 ambulatory NIKUNJMIGUEL SNIDER TRIMMING DEPARTMENT BLOCKER-EARTH OBSERVATIONS CHIEF SCIENTIST Facility:A Start: 06-20-2022 End: 06-20-2022 Patient encounter procedure NIKUNJ SNIDER TRIMMING DEPARTMENT BLOCKER-EARTH OBSERVATIONS CHIEF SCIENTIST [facility] Start: 06-14-2022 End: 06-14-2022 Orders Luke Vida PA-C Work Phone: [employer]. Start: 06-14-2022 End: 06-14-2022 Historical Summary Luke Vida PA-C Work Phone: [employer] Start: 06-07-2022 End: 06-07-2022 Office outpatient visit 15 minutes Luke Vida PA-C Work Phone: [employer] Start: 05-18-2022 End: 05-18-2022 Office outpatient visit 15 minutes Luke Vida PA-C Work Phone: [employer] Start: 04-24-2022 End: 04-24-2022 Nursing evaluation of patient and report Luke Vida PA-C Work Phone: [employer] Start: 04-12-2022 End: 04-12-2022 Orders Luke Vida PA-C Work Phone: [employer] Start: 04-10-2022 End: 04-10-2022 Nursing evaluation of patient and report Luke Vida PA-C Work Phone: [employer] Start: 04-05-2022 End: 04-05-2022 Patient encounter status Luke Vida PA-C Work Phone: [employer]; [employer]. Start: 04-05-2022 End: 04-05-2022 Periodic preventive med est patient 18-39 yrs Luke Vida PA-C Work Phone: [employer] Start: 04-05-2022 End: 04-05-2022 Physical examination Luke Vida PA-C Work Phone: [employer]; [employer]. Start: 01-30-2022 End: 01-30-2022 Medication Luke Vida PA-C Work Phone: [employer]. Start: 01-25-2022 End: 01-25-2022 Office outpatient visit 15 minutes Luke Vida PA-C Work Phone: [employer]. Start: 11-15-2021 End: 11-16-2021 Office outpatient visit 15 minutes Luke Vida PA-C Work Phone: [employer]. Start: 11-02-2021 End: 11-02-2021 Office outpatient visit 15 minutes Luke Vida PA-C Work Phone: [employer]. Start: 11-03-2020 End: 11-03-2020 Patient encounter procedure Luke Vida PA-C Work Phone: [employer]. Start: 11-03-2020 End: 11-03-2020 Patient encounter status Rosalba Roper LPN Work Phone: [employer]. Start: 09-29-2020 End: 09-29-2020 Orders Luke Vida PA-C Work Phone: [employer]. Start: 02-17-2020 End: 02-17-2020 Orders Luke Vida PA-C Work Phone: [employer]. Start: 02-17-2020 End: 02-17-2020 Historical Summary Luke Vida PA-C Work Phone: [employer]. Start: 12-25-2019 End: 12-25-2019 Historical Summary Luke Vida PA-C Work Phone: [employer] Start: 12-23-2019 End: 12-23-2019 Patient encounter procedure Vincent Liuetler PA-C Work Phone: [employer] Start: 12-23-2019 End: 12-23-2019 Patient encounter status Luchris JarrettVida PA-C Work Phone: [employer]; [employer]. Start: 01-14-2019 End: 01-14-2019 Telephone follow-up Vincent Liuetler PA-C Work Phone: [employer] Start: 08-27-2018 End: 08-27-2018 Patient encounter procedure Vincent Liuetler PA-C Work Phone: [employer] Start: 07-30-2018 End: 07-30-2018 Historical Summary Vincent Liuetler PA-C Work Phone: [employer] Start: 07-05-2018 End: 07-05-2018 Office outpatient visit 15 minutes Jyotike Vida PA-C Work Phone: [employer] Start: 05-28-2018 End: 05-28-2018 Patient encounter procedure Vincent Liuetler PA-C Work Phone: [employer] Start: 05-28-2018 End: 05-28-2018 Patient encounter status Vincent Liuetler PA-C Work Phone: [employer]; [employer] Procedures Date Procedure Procedure Detail Performing Clinician Start: 06-14-2022 End: 06-14-2022 Lab findings surveillance Celeste sharp RN Comment on above: Normal. 99 Start: 04-05-2022 End: 04-05-2022 Depression screening Vincent Jerome BellVida PA-C Work Phone: Start: 04-05-2022 End: 04-05-2022 Scr dep neg, no plan reqd Vincent Jerome Padilla tler PA-C Work Phone: Start: 01-25-2022 End: 01-30-2022 Ct head/brain w/o & w/contrast material Vincent Banks PA-C Work Phone: Start: 11-03-2020 End: 11-03-2020 Body mass index documented Ajay hernández MD Work Phone: Start: 11-03-2020 End: 11-03-2020 Depression screening Ajay Cazares MD Work Phone: Start: 11-03-2020 End: 11-03-2020 Scr dep neg, no plan reqd Ajay baker MD Work Phone: Start: 11-03-2020 End: 11-03-2020 Removal impacted cerumen instrumentation unilat Ajay Cazares MD Work Phone: Start: 01-21-2020 End: 01-21-2020 Appendectomy Celeste Whitney RN Start: 2020 Carpal tunnel syndro me (disorder) NIKUNJ SNIDER TRIMMING DEPARTMENT BLOCKER-EARTH OBSERVATIONS CHIEF SCIENTIST Start: 12-29-2019 Appendectomy NIKUNJ VICENTE TRIMMING DEPARTMENT BLOCKER-EARTH OBSERVATIONS CHIEF SCIENTIST Start: 12-24-2019 End: 12-24-2019 kidney ultrasound Monique Olea MA Comment on above: Within Normal Limits . family h/o polycystic kidney disease (mom) Start: 12-23-2019 End: 12-23-2019 Depression screening Ajay Cazares MD Work Phone: Start: 12-23-2019 End: 12-23-2019 Lipid panel Celeste Whitney RN Comment on above: Normal. tc 202 hdl 5 4 ldl 122 trig 146 Start: 12-23-2019 End: 12-23-2019 No Known Past Surgical History Monique Olea MA Start: 12-23-2019 End: 12-23-2019 Scr dep neg, no plan reqd Ajay baker MD Work Phone: Start: 12-23-2019 End: 12-25-2019 Us retroperitoneal real time w/image complete Ajay Cazares MD Work Phone: Start: 02-27-2019 Knee joint operation VENTURA SNIDER TRIMMING DEPARTMENT BLOCKER-EARTH OBSERVATIONS CHIEF SCIENTIST Start: 05-28-2018 End: 05-28-2018 Body mass index documented Ajay hernández MD Work Phone: Start: 05-28-2018 End: 05-28-2018 Depression screening Ajay Cazares MD Work Phone: Start: 05-28-2018 End: 05-28-2018 Scr dep neg, no plan reqd Ajay baker MD Work Phone: Start: 04-29-2018 End: 04-29-2018 Decompression of median nerve Celeste Whitney RN Start: 04-29-2018 End: 04-29-2018 Knee Surgery Celeste Whitney RN Start: 04-29-2010 End: 04-29-2010 Screening colonoscopy Celeste tan RN Comment on above: for abdominal pain Plan of Treatment Date Care Activity Detail Author Start: 07-22-2023 End: 08-19-2023 Polysom 6/>yrs sleep 4/> addl desirae attnd [facility]. ; [employer] Immunizations Immunization Date Immunization Notes Care Provider Gerald mohr 12-13-2022 hepatitis B vaccine, adult dosage Luke Vida PA-C Work Phone: [facility] [employer]. Comment on above: Site: Right DeltoidV IS Given: * Hepatitis B (02/10/21) 06-07-2022 hepatitis B vaccine, adult dosage Luke Vida PA-C Work Phone: [employer]; [employer] Comment on above: Site: Right ArmVIS G iven: * Hepatitis B (02/10/21) 04-12-2022 hepatitis B vaccine, adult dosage Luke Vida PA-C Work Phone: [employer]; [employer] Comment on above: Site: Right DeltoidV IS Given: * Hepatitis B (02/10/21) 04-12-2022 measles, mumps and rubella virus vaccine Luke Vida PA-C Work Phone: [facility]; [facility] Comment on above: Site: Right Aden escobar: * MMR Vaccine (Measles, Mumps, and Rubella) (12/02/20) 03-21-2022 COVID-Moderna (Bivalent 50 MCG/0.5 ML IM BST) Luke Vida PA-C Work Phone: [facility] [employer] [facility] 04-27-2021 COVID-Moderna (100 MCG/0.5 ML) Luke Vida PA-C Work Phone: [facility]; [employer] 06-01-2020 COVID-Moderna (100 MCG/0.5 ML) Luke Vida PA-C Work Phone: [facility] [employer] [facility] [facility] 05-06-2020 COVID-Moderna (100 MCG/0.5 ML) Luke Vida PA-C Work Phone: [facility]; [employer] [facility] [facility] 04-29-2014 tetanus toxoid, reduced diphtheria toxoid, and acellular pertussis vaccine, adsorbed Luke Vida PA-C Work Phone: [facility].; [employer] [facility] 11-27-1999 measles, mumps and rubella virus vaccine Luke Vida PA-C Work Phone: [facility]; [employer] Payers Date Payer Category Payer Unknown [id number] 1985 Unknown [id number] 1987 Unknown [id number] 1987 Unknown [id number] 1987 Unknown [id number] Social History Date Type Detail Facility Start: 06-20-2022 Tobacco smoking status Never s moked tobacco (finding) [facility] Sex Assigned At Male [facility] Current Work/Study Status Current Work/Study Status [facility] Tobacco Use: Tobacco Use: ; N ever smoker. [facility] [employer] Mental Status Date Assessment Result [facility] [employer] Evaluation + Plan note Radiology Note Date & Type Note Facility Evaluation + Plan note Future Scheduled TestsUS Renal 07/18/[address] [facility] Evaluation + Plan note Note Date & Type Note Facility Evaluation + Plan note Future Appointments Appointment Date:07/30/2022 01:40:00 PM Scheduled Provider:NURY LOPEZ Location:UROLOGY Appointment Type:[facility] Hospital course Narrative Note Date & Type Note Facility Hospital course Narrative No data available for this section [facility] Hospital Discharge instructions Note Date & Type Note Facility Hospital Discharge instructions No data available for this section [facility] Progress note Note Date & Type Note Facility Progress note No data available for this section [facility] Summary Purpose Family History Father Status:Active Comments:In good health. Kidney Disease Status:Active Comments:Family Members In General. Mother Status:Active Comments: d. in 2019, polycystic kidneys Father Status:Active Comments:In good health. Kidney Disease Status:Active Comments:Family Members In General. Mother Status:Active Comments: d. in 2019, polycystic kidneys Father Status:Active Comments:In good health. Kidney Disease Status:Active Comments:Family Members In General. Mother Status:Active Comments: d. in 2019, polycystic kidneys Father Status:Active Comments:In good health. Kidney Disease Status:Active Comments:Family Members In General. Mother Status:Active Comments: d. in 2019, polycystic kidneys Father Status:Active Comments:In good health. Kidney Disease Status:Active Comments:Family Members In General. Mother Status:Active Comments: d. in 2019, polycystic kidneys Father Status:Active Comments:In good health. Kidney Disease Status:Active Comments:Family Members In General. Mother Status:Active Comments: d. in 2019, polycystic kidneys Father Status:Active Comments:In good health. Kidney Disease Status:Active Comments:Family Members In General. Mother Status:Active Comments: d. in 2019, polycystic kidneys Father Status:Active Comments:In good health. Kidney Disease Status:Active Comments:Family Members In General. Mother Status:Active Comments: d. in 2019, polycystic kidneys Advance Directives No Advanced Directives Records FoundNo Advanced Directives Records FoundNo Advanced Directives Records Found Additional Source Comments (unrecognized sect ion and content) No Status Records FoundNo Status Records FoundNo Status Records Found INFORMATION SOURCE (unrecogn ized section and content) DATE CREATED AUTHOR 04/19/2022 [facility] DATE CREATED AUTHOR AUTHOR'S ORGANIZ ATION 08/05/2022 [facility] DATE CREATED AUTHOR AUTHOR'S ORGANIZ ATION 08/16/2023 [facility] Care Team (unrecognized sect ion and content) Care Team Personnel Name: AJAY CAZARES MD Member Role: Primary Care Physician Address: Address: [address] [place] [address] [address]EMA [address] Care Team Related Persons Name: JODY YEPEZ Patient Care team informatio n (unrecognized section and content) Care Team Personnel Name: AJAY CAZARES MD Member Role: Primary Care Physician Address: Address: [address] [place] [address] [address]EMA [address] Care Team Related Persons Name: JODY YEPEZ Care Team Personnel Name: AJAY CAZARES MD Member Role: Primary Care Physician Address: Address: [address] [place] [address] [address]EMA [address]OS [address] Care Team Related Persons Name: JODY YEPEZ FOR RECORDS PERTAINING TO PATIENTS WHO ARE OR HAVE BEEN ENROLLED IN A CHEMICAL DEPENDENCY/SUBSTANCEABUSE PROGRAM, SOME INFORMATION MAY BE OMITTED. This clinical summary was aggregated from multiple sources. Caution should be exercised in using it in the provision of clinical care. This summary normalizes information from multiple sources, and as a consequence, information in this document may materially change the coding, format and clinical context of patient data. In addition, data may be omitted in some cases. CLINICAL DECISIONS SHOULD BE BASED ON THE PRIMARY CLINICAL RECORDS. [employer] [facility]. provides no warranty or guarantee of the accuracy or completeness of information in this document.
[2024-03-06 11:09] LABS: Testosterone, Free 6.05 ng/dL (5.00-21.00); Testosterone, Total 224 ng/dL (264-916)
== END | disposition home or self-care (01) ==
PROVIDERS: PCP Nurse Practitioner Family; Visit Provider Nurse Practitioner Family
DX: Z13.220 Encounter for screening for lipoid disorders (principal); Z13.1 Encounter for screening for diabetes mellitus; E29.1 Testicular hypofunction; R53.83 Other fatigue
CPT/HCPCS: 36415; 80053; 80061; 82306; 82607; 83036; 84402; 84403; 84443; 85025

== ENCOUNTER → 2024-11-25 | Outpatient (CLI) | payer OTHER, SELFPAY ==
--- OUTSIDE RECORDS SUMMARY | 2024-11-25 12:35 | XMS RPT_ITS | CCD ---
Author Organization [facility] Inform ion [facility] Care Team Providers Care Director Digital Sales Name Role Phone SAGE IPMENTEL, DR AJAY Jaramillo Primary Care Physician JOHN MANUAL QA TESTER-MELT SUPERVISOR, NURY Godoy Attending Clariceva ilwenceslao CAZARES MD, DR AJAY Jaramillo Primary Care Mike HAMLINMELT SUPERVISOR, NIKUNJ Cody Attending Claricev ashley CAZARES MD, DR AJAY Jaramillo Primary Care Mike WALKER, NIKUNJ Cody Attending Claricev ashley CAZARES MD, DR AJAY Jaramillo Primary Care Vincent Randolph PA-C Unavailable Urologist Provider Unavailable Unavailable Vitaly PIMENTEL, Dr. Jackson ([place] [facility]) A Unavail able Ivana PIMENTEL, Dr. Pieter Gamino Unavailable [phone] Rosalba Roper LPN Unavailable Farheen Woods MA Unavailable Unavailable Sina Waddell MD Unavailable Monique Olea MA Unavailable Unavailable Celeste Whitney RN Unavailable Unavaila sue Calvillo ASSEMBLER FAUCETS, Danial Unavailable Unavailable Hamida DONALD, Mercy Unavailable Unavailable Leatha Lilly MA Unavailable Unavailable Ajay Cazares MD Unavailable Unavailable Unavailable AJAY CAZARES Consulting Unavailable CHALINO DOTSON Admitting Unavailable CHALINO DOTSON Primary Care Unavailable CHALINO DOTSON Attending Unavailable PROVIDER, UNKNOWN Consulting Unavailable PROVIDER, UNKNOWN Consulting Unavailable PROVIDER, UNKNOWN Consulting Unavailable VINCENT BANKS Attending Unavailable AJAY CAZARES Consulting Unavailable VINCENT BANKS Admitting Unavailable DARREN, LUKE E Primary Care Unavailable PROVIDER, UNKNOWN Consulting Unavailable PROVIDER, UNKNOWN Consulting Unavailable PROVIDER, UNKNOWN Consulting Unavailable ANDREEA PRATT DO Admitting Unavailable VACCARIELLO, AJAY Consulting Unavailable ANDREEA PRATT DO Primary Care Unavailable ANDREEA PRATT DO Attending Unavailable PROVIDER, UNKNOWN Consulting Unavailable PROVIDER, UNKNOWN Consulting Unavailable PROVIDER, UNKNOWN Consulting Unavailable Katheryn [facility], Pam Attending Unavailable Katheryn [facility], Pam Primary Care Unavailable Allergies Allergy Classification Reported Allergen(s) Allergy Type Date of Onset Reaction(s) Facility (13 sources) Cortisone *[facility] Medications Current Medications Medication Drug Class(es) Dates Sig (Normalized) Sig (Original) hydrOXYzine hydrochloride 10 mg oral tablet (16 sources) Antihistamine Start: 06-20-2022 hydrOXYzine hydrochloride 10 [...] Sig (Original) amoxicillin 500 mg oral tablet (13 sources) Penicillin-class Antibacterial Start: 07-05-2018 End: 07-15-2018 [...] mg / clavulanate 125 mg oral tablet (13 sources) Penicillin-class Antibacterial Start: 01-30-2022 End: 02-06-2022 [...] / dextroamphetamine sulfate 2.5 mg oral tablet (14 sources) Central Nervous System Stimulant Start: 12-13-2022 End: 01-12-2023 AdderalL 10 mg tablet ; 1 (one) Tablet daily for 30 days Quantity: 30 {Tablet} Refills: 0 Ordered: 13-Dec-2022 AMY Banks Start: 13-Dec-2022 End: 12-Jan-2023 Status: Inactive Comments: KELLEN 12/06/2022 Start: 07-30-2022 take 1 tablet by claudio th twice daily amphetamine-dextroamphetamine 10 mg oral tablet TAKE ONE TABLET BY MOUTH TWICE DAILY Start Date: 07/30/22 Status: Ordered Comment on above: KELLEN 12/06/2022 buPROPion hydrochloride 75 mg oral tablet (20 sources) Aminoketone Start: End: take 1 tablet by mouth once daily [...] {Tablet} Refills: 3 Ordered: 02-Nov-2021 DONALD Mei Mercy Start: 03-Nov-2020 End: 02-Nov-2021 Status: Discontinued busPIRone hydrochloride 10 mg oral tablet (15 sources) Start: 06-07-2022 End: 07-16-2022 take 1 tablet by mouth twice daily busPIRone HCl 10 MG Oral Tablet ; 1 (one) Tablet twice a day for 0 days Quantity: 30 {Tablet} Refills: 2 Ordered: 16-Jul-2022 AHMET Whitney Start: 07-Jun-2022 End: 16-Jul-2022 Status: Discontinued citalopram 20 mg oral tablet (13 sources) Serotonin Reuptake Inhibitor take 1 tablet by mouth once daily Citalopram Hydrobromide 20 MG Oral Tablet ; 1 daily (20 MG) Status: Inactive oxybutynin chloride 5 mg oral tablet (3 sources) Cholinergic Muscarinic Antagonist Start: 06-20-2022 End: 06-20-2022 oxybutynin 5 mg oral tablet Dose : 5 mg = 1 tab(s), Oral, Daily, # 30 tab(s), 3 Refill(s), Pharmacy: [id number], 180.3, cm, 06/20/22 9:59:00 EST, Height Start Date: 06/20/22 Stop Date: 06/20/22 Status: Ordered sulfamethoxazole 800 mg / trimethoprim 160 mg oral tablet (13 sources) Dihydrofolate Reductase Inhibitor Antibacterial, Sulfonamide Antimicrobial Start: 11-02-2021 End: 11-12-2021 take 1 tablet by mouth twice daily Sulfamethoxazole- Trimethoprim 800-160 MG Oral Tablet ; 1 (one) Tablet twice a day for 10 days Quantity: 20 {Tablet} Refills: 0 Ordered: 02-Nov-2021 AMY Banks Start: 02-Nov-2021 End: 12-Nov-2021 Status: Inactive tamsulosin hydrochloride 0.4 mg oral capsule (13 sources) alpha-Adrenergic Adalgisa Start: 11-15-2021 End: 12-15-2021 take 1 capsule by mouth once daily Tamsulosin HCl 0.4 MG Oral Capsule ; 1 (one) Capsule daily for 30 days Quantity: 30 {Capsule} Refills: 0 Ordered: 15-Nov-2021 AMY Banks Start: 15-Nov-2021 End: 15-Dec-2021 Status: Inactive Problems Active Problems Problem Classification Problem Date Documented Date Episodic/Chronic Anxiety disorders (20 sources) Generalized anxiety [...] Translations: [Dysuria] 07-30-2022 Episodic Headache; including migraine (20 sources) Headache; Translations: [Headache] 07-22-2023 Episodic Immunizations and screening for infectious disease (20 sources) Patient encounter status; Translations: [Encounter for immunization] 07-16-2022 Episodic Inflammatory conditions of male genital organs (20 sources) Epididymitis; Translations: [Epididymitis] 07-22-2023 Episodic Mood disorders (20 sources) Depressive disorder; Translations: [Depressive disorder, not elsewhere classified] 07-22-2023 Chronic Other ear and sense organ disorders (13 sources) Impacted cerumen of bilateral ears; Translations: [Impacted cerumen, bilateral] 11-03-2020 Episodic Other lower respiratory disease (20 sources) Snoring; Translations: [Snoring] 07-22-2023 Episodic Other nervous system disorders (3 sources) Chronic pain in male pelvis 06-20-2022 Chronic Other nervous system disorders (20 sources) Bilateral carpal tunnel syndrome; Translations: [Carpal tunnel syndrome, bilateral upper limbs] 07-22-2023 Chronic Other nutritional; endocrine; and metabolic disorders (20 sources) Body mass index 30+ - obesity; Translations: [Body mass index (BMI) 38.0-38.9, adult] 07-22-2023 Chronic Other nutritional; endocrine; and metabolic disorders (20 sources) Body mass index 40+ - severely obese; Translations: [Body mass index (BMI) 40.0-44.9, adult] 11-03-2020 Chronic Other nutritional; endocrine; and metabolic disorders (20 sources) Obesity; Translations: [Obesity, unspecified] 07-22-2023 Chronic Other screening for suspected conditions (not mental disorders or infectious disease) (1 source) Encounter for screening for lipoid disorders; Translations: [Encounter for screening for lipoid disorders] Onset: 03-17-2024 Episodic Other upper respiratory disease (20 sources) Disorder of nasal sinus; Translations: [Unspecified disorder of nose and nasal sinuses] 07-22-2023 Episodic Other upper respiratory infections (13 sources) Acute pharyngitis; Translations: [Acute pharyngitis, unspecified] 07-05-2018 Episodic Residual codes; unclassified (20 sources) History of vaccination; Translations: [Personal history of other drug therapy] 07-22-2023 Episodic Comment on above: Moderna Residual codes; unclassified (20 sources) FH: Polycystic kidney; Translations: [Family history of polycystic kidney] 07-22-2023 Episodic Residual codes; unclassified (20 sources) Amnesia; Translations: [Other amnesia] 07-22-2023 Episodic Residual codes; unclassified (13 sources) Non-smoker; Translations: [Other specified health status] 07-22-2023 Episodic Residual codes; unclassified (13 sources) Delirium; Translations: [Disorientation, unspecified] 01-25-2022 Episodic Unclassified (13 sources) Follow up for multiple chronic conditions [...] Problem Date Documented Da te Episodic/Chronic Hepatitis (13 sources) Hepatitis 06-07-2022 Mood disorders (13 sources) Mood disorders 11-03-2020 Unclassified (13 sources) Snoring - Symptoms include snoring, nocturnal gasping and witnessed nocturnal apnea. The snoring is described as extremely loud, crescendo, gurgling and disruptive to the bed partner. This is described as severe and worsening. Risk factors include obesity. Note for Snoring: Patient does note that his has indicated [...] tolerate adverse effects of irritability. 07-22-2023 Unclassified (13 sources) Follow up for chronic condition - [...] was more depressed. 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 Note for Chronic condition follow-up: Years ago, he was on Adderall 10mg. He had leftover pills. He started taking the Adderall 2 pills daily about 1 week ago. States that it is a night and day difference. He has more energy and feels more like myself and able to focus on what I need to do. He sees a therapist every few months. 07-16-2022 Unclassified (13 sources) F/U meds - Pt is not taking any meds now. Pt said it has been over a year since taking medication. Pt went back to school and needs something to keep himself focused on his school. Pt wants a refill on meds or to maybe change medication. 05-18-2022 Unclassified (13 sources) Well adult male - The patient feels well with no complaints, has good energy level and is sleeping well. The current method of contraception is condom-male. The patient has a balanced diet and takes supplemental vitamins. The patient exercises weekly (cross fit 4-5 week). The patient sleeps 6 hours per night. The patient's libido is absent. 04-05-2022 Unclassified (13 sources) Headache - The onset of the headache has been acute and has been occurring in a persistent pattern for weeks. The course has been increasing in severity. The headache is characterized as deep pain. The headache is described as being located in the frontal area. Note for Headache: Episode of confusion and agitation yesterday for about 30 minutes. Denies slurred speech or LOC. 01-25-2022 Unclassified (13 sources) Follow up - Here for follow up epididmytis. Continues to have the urgency of urinating. The symptoms are worse at bedtime. 11-16-2021 Unclassified (13 sources) UTI - Symptoms include urinary frequency [...] , menopause or diaphragm use. Note for UTI: feeling dizzy, lack of energy and lack of sex drive. 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 The patient takes no supplemental vitamins & iron. The patient exercises every other day and daily (Crossfit and running). The patient sleeps 4 hours per night. 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 The patient does not exercise. 12-23-2019 Unclassified (13 sources) Hand pain - The onset of the hand pain has been gradual and has been occurring in a persistent pattern for 2 years. The course has been increasing. The hand pain is characterized as a moderate. Note for Hand pain: -Numbness and tingling in both hands. R>L. Right hand dominant. 08-27-2018 Unclassified (13 sources) Cold Symptoms - Symptoms include nasal [...] with an upper respiratory infection. 07-05-2018 Unclassified (13 sources) Well adult male - The patient feels well with no complaints, has good energy level and is sleeping well. The patient takes no supplemental vitamins & iron. The patient exercises 3 - 4 times per week. The patient sleeps 8 hours per night. 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 The patient takes no supplemental vitamins & iron. The patient exercises every other day and daily (Crossfit and running). The patient sleeps 4 hours per night. 11-03-2020 Results Test Name Value Interpretation Reference Range Facility Testosterone, Total / Freeon 03-06-2024 TESTOSTER,FREE 6.05 ng/dL Normal 5.00-21.00 [facility] Comment on above: Order Comment: N Performed By: #### L 500.4050, L500.4100, L501.9985, L506.1000, L100.0100, L3100.5310, L503.0105, L501.9520 #### [facility] [address] [place], [place], [id number] TESTOSTER,TOTAL 224 ng/dL Low [id number] [facility] Comment on above: Order Comment: N Result Comment: Adul t male reference interval is based on a population of healthy nonobese males (BMI <30) between 19 and 39 years old. Jocelyne et.al. JCEM 2017,102;6967-2208. PMID: [id number]. Performed By: #### L 500.4050, L500.4100, L501.9985, L506.1000, L100.0100, L3100.5310, L503.0105, L501.9520 #### [facility] [address] [place], [place], [id number] TESTOSTERONE,%F 2.70 Normal 1.50-4.20 [facility] Comment on above: Order Comment: N Result Comment: Perf ormed at: [facility] [address] [id number] [place] Tiler: Jose Bowers PhD, Phone: [phone] Performed at: [facility] [address] [id number] [place] Tiler: Dario Nowak MD, Phone: [phone] Performed By: #### L 500.4050, L500.4100, L501.9985, L506.1000, L100.0100, L3100.5310, L503.0105, L501.9520 #### [facility] [address] [place], [address] ED MED ADMINISTRATION DETAIL on 03-04-2024 ED MED ADMINISTRATION DETAIL [employer] Medication Administration Record [address] [address] [id number] 02/29/2024 Patient: JACKELIN BARNETT Sex: Male : 1985 Age: 39y MEASUREMENTS: Wt: 136.1 kg, Ht/Bruno: 71.0 in, BMI: 41.84 ALLERGIES: No known drug allergies Medication Ordered Medication Administration Date/Time MORPHine IVP 4 20:24 02/28 MORPHine IVP 4 mg given via Site# 1. Allergies Given mg (NOW x1, HIGH verified and confirmed 5 rights. IV patency established. IV site 20:24 02/29/2024 ALERT checked: no pain, redness, or swelling. IV flushed thoroughly Jose KohliNDoug MEDICATION) pre-medication administration. Information reviewed with patient Scanned including reason for taking this medication and sedative warning. Verbalizes understanding. - 20:26 Vahe Quinn R.N. KetorOLAC 20:22 02/28 KetorOLAC (Toradol) IVP 30 mg given via Site# 1. IV Given (Toradol) IVP 30 mg patency established. IV site checked: no pain, redness, or swelling. 20:22 02/29/2024 (NOW x1) IV flushed thoroughly pre-medication administration. IVP given by Vahe Quinn R.N. physician. Information reviewed with patient including reason for Scanned taking this medication. Verbalizes understanding. - 20:23 Vahe Quinn R.N. 1 of 1 Normal [facility] ED NURSES CLINICAL NOTEon ED NURSES CLINICAL NOTE Nurse Narrative Nurse Clinical Narrative [address] [place] [address] [id number] 02/29/2024 Patient: JACKELIN BARNETT Sex: Male : 1985 Age: 39y Disposition: Discharge to Home Disposition Decision Time: 20:23 02/29/2024 Departure Time: 20:45 02/29/2024 TRIAGE Arrived by private vehicle. Historian: patient. Triage time: 17:42 02/29/2024. Acuity: LEVEL 3. Chief Complaint: (side pain). Onset. (1000 today). The patient has had nausea, a cough and weakness. SEPSIS SCREEN: NEGATIVE. SIRS criteria negative. Possible sources of infection. -- 17:48 02/29/24 EDT Julio Zimmer R.N. 17:46 02/29/24. BP: 139/81 MAP: 100. HR: 60. RR: 18. O2 saturation: 96% Temperature: 98.4 F (oral). Pain level now 6/10. Describes the pain as sharp. -- 17:46 02/29/24 EDT Julio Zimmer R.N. Measurements: 17:45 02/29/24 Wt: 136.1 kg, Ht/Bruno: 71.0 in, BMI: 41.84 -- 17:45 02/29/24 EDT Julio Zimmer R.N. Medications: no known home medications -- 17:45 02/29/24 EDT Julio Zimmer R.N. Allergies: 1 of 3 Nurse Narrative no known drug allergies -- 17:45 02/29/24 EDT Julio Zimmer R.N. Problems: no known problem -- 17:45 02/29/24 EDT Julio Zimmer R.N. ADDITIONAL SURGERIES: Appendectomy -- 17:44 02/29/24 EDT Julio Zimmer R.N. Knee Surgery -- 17:44 02/29/24 EDT Julio Zimmer R.N. Carpal Tunnel Surgery -- 17:44 02/29/24 EDT Julio Zimmer R.N. History 17:42 02/29/24. SOCIAL HX: Never smoker. Occasional alcohol use. No drug use. The patient has not traveled outside the [place] Infectious disease exposure: No infectious disease exposure. ABUSE ASSESSMENT: The patient answered yes to the question(s) Do you feel safe in your home? and no to the question(s) Are you afraid to go home?. SELF HARM ASSESSMENT: Self harm assessment was performed. The patient answered no to the question(s) Have you recently felt down, depressed, or hopeless? and Do you have thoughts of harming or killing yourself?. FALL RISK ASSESSMENT: Fall risk assessment completed. No risk factors identified. -- 17:48 02/29/24 EDT Julio Zimmer R.N. Interventions 17:42 02/29/24. To room. -- 17:48 02/29/24 EDT Julio Zimmer R.N. PHYSICAL ASSESSMENT 18:00 02/29/24. Ambulatory to room. (Pt c/o sudden onset right side pain starting around 1000 this morning. Pt denies recent strain or trauma to the area.). GENERAL / NEURO / PSYCH: Alert. Oriented X 4. Appears in no acute distress. ( Denies diaphoresis.). RESPIRATORY: Respirations not labored. Breath sounds within normal limits. No cough. CVS: Heart sounds within normal limits. Pulses within normal limits. ( Denies chest pain). Capillary refill less than 2 of 3 Nurse Narrative 2 seconds. GI / : The patient has had nausea. Abdomen soft and nontender. No emesis noted. No diarrhea. No CVA tenderness, pain with urination, frequency of urination or urgency of urination. No hematuria. -- 18:26 02/29/24 EDT Sumeet Spivey R.N. NURSING PROGRESS NOTES 18:00 02/29/24. Patient identifiers checked. Call light placed in reach. Side rails up x 1. Bed placed in lowest position. Brakes of bed on. ( One visitor is at the bedside.). -- 18:49 02/29/24 EDT Sumeet Spivey R.N. 18:02 02/29/24. Site #1 started via IV in the right antecubital space with an 18g angiocath with aseptic technique and good blood return; 1 attempt. Blood drawn: rainbow set and madrigal tube(s). Saline lock flushed with 5 mL saline. -- 18:06 02/29/24 EDT Sumeet Spivey R.N. 19:00 02/29/24. Care transferred and report given (to RN. Vahe). -- 19:02 02/29/24 EDT Sumeet Spivey R.N. 20:22 02/29/24. KetorOLAC (Toradol) IVP 30 mg given via Site# 1. IV patency established. IV site checked: no pain, redness, or swelling. IV flushed thoroughly pre-medication administration. IVP given by physician. Information reviewed with patient including reason for taking this medication. Verbalizes understanding. -- 20:23 02/29/24 EDT Vahe Quinn R.N. 20:24 02/29/24. MORPHine IVP 4 mg given via Site# 1. Allergies verified and confirmed 5 rights. IV patency established. IV site checked: no pain, redness, or swelling. IV flushed thoroughly pre-medication administration. Information reviewed with patient including reason for taking this medication and sedative warning. Verbalizes understanding. -- 20:26 02/29/24 EDT Vahe Quinn R.N. DISPOSITION / DISCHARGE 20:42 02/29/24. Site #1 removed upon discharge. Catheter intact. Bandage applied. -- 20:52 02/29/24 EDT Vahe Quinn R.N. 20:43 02/29/24. BP: 114/72 MAP: 80 mmHg. HR: 60 bpm. -- 20:53 02/29/24 EDT Vahe Quinn R.N. Departure time: 20:45 02/29/2024. Condition at departure: improved and stable. No learning barriers present. Discharge instructions provided and reviewed with the patient. Reviewed medication(s) dosing information. Prescription(s) sent electronically to pharmacy (2 pe (more content not included)... Normal [facility] ED PHYSICIAN CLINICAL REPORT on 03-04-2024 ED PHYSICIAN CLINICAL REPORT Narrative Physician Clinical Narrative [place] [id number] [facility] [place] [address] [id number] 02/29/2024 Patient: JACKELIN BARNETT Sex: Male : 1985 Age: 39y Disposition: Discharge to Home Disposition Decision Time: 20:23 02/29/2024 Departure Time: 20:45 02/29/2024 Measurements Wt: 136.1 kg, Ht/Bruno: 71.0 in, BMI: 41.84 Initial Vital Sign Measured Time BP MAP HR RR O2Sat ETCO2 Temp Pain GCS RTS 17:46 02/29/2024 139/81 100 60 18 96% 98.4 F 6 Time Seen: 17:42 02/29/2024. Arrived- By private vehicle. Historian- patient. HISTORY OF PRESENT ILLNESS Chief Complaint: CHEST PAIN. This started today started having right flank pain. Which started this morning and got progressively worse. Says the 7/10 but at times it is at 10/10 he did do a lot of lifting and straining yesterday but does not feel like a muscle strain. He has had a history of kidney stones not feel like a kidney stone he presents to the emergency department and is still present. It is described as aching and pain and it is described as located in the right chest area. At its maximum, severity described as 10 / 10. When seen in the E.D., severity described as 7 / 10. The patient has had nausea. REVIEW OF SYSTEMS ENDO/HEME/LYMPH: No enlarged lymph nodes. RESPIRATORY: No cough. CVS: No pedal edema or calf pain. NEUROLOGICAL: No fainting episodes or headache. THROAT: No sore throat. SKIN: No skin rash. CONSTITUTIONAL: No fever or chills. MUSCULOSKELETAL: No joint pain. 1 of 13 Narrative PAST HISTORY no known problem Surgeries: Appendectomy Carpal Tunnel Surgery Knee Surgery Medications: no known home medications Allergies: no known drug allergies SOCIAL HISTORY Never smoker. No alcohol use. ADDITIONAL NOTES The nursing notes have been reviewed. PHYSICAL EXAM Appearance: Alert. Oriented X3. No acute distress. Eyes: Pupils equal, round and reactive to light. ENT: Ears normal. Nose normal. CVS: Normal heart rate and rhythm. Heart sounds normal. Respiratory: No respiratory distress. Breath sounds normal. Abdomen: Soft. Moderate tenderness in the upper abdomen and right upper quadrant. Skin: Skin warm and dry. Normal skin color. Normal skin turgor. Neuro: Oriented X 3. No motor deficit. No sensory deficit. LABS, X-RAYS, AND EKG Laboratory Tests: 2 of 13 Narrative CBC + DIFF Final SRINI: 02/29/2024 18:02:00 EDT MsgRcvd: 02/29/2024 18:17 EDT Lab Test Result Reference Status Received Comments 02/29/2024 18:17 CBC-COMPLETE CBC + DIFF Final EDT BLOOD COUNT 02/29/2024 18:17 WBC 10.3 x 10/UL 4.5 - 10.8 Final EDT 02/29/2024 18:17 RBC 5.26 x 10/UL 4.50 - 6.00 Final EDT 02/29/2024 18:17 HEMOGLOBIN 16.3 g/dl 13.0 - 17.5 Final EDT 02/29/2024 18:17 HEMATOCRIT 48.6 % 40.0 - 52.0 Final EDT 02/29/2024 18:17 MCV 92 fl 81 - 98 Final EDT 02/29/2024 18:17 MCH 31 pg 27 - 33 Final EDT 02/29/2024 18:17 MCHC 34 X10 3 32 - 36 Final EDT 02/29/2024 18:17 RDW/CV 13.2 % 12.0 - 15.6 Final EDT 02/29/2024 18:17 PLATELET 262 x10/UL 150 - 450 Final EDT 02/29/2024 18:17 AUTOMATED MPV 8.2 fl 6.4 - 10.5 Final EDT DIFFERENTIAL 02/29/2024 18:17 NEUT % 54.8 % 46.0 - 76.0 Final EDT 3 of 13 Narrative 02/29/2024 18:17 LYMPH % 33.7 % 20.0 - 45.0 Final EDT 02/29/2024 18:17 MONOS % 8.5 % 0.0 - 10.0 Final EDT 02/29/2024 18:17 EO % 2.7 % 0.0 - 7.0 Final EDT 02/29/2024 18:17 BASO % 0.3 % 0.0 - 2.0 Final EDT 3.47 x10/UL 02/29/2024 18:17 Lymph # 0.80 - 2.80 Final Above high normal EDT 02/29/2024 18:17 Neut # 5.65 x10/UL 1.50 - 7.10 Final EDT 02/29/2024 18:17 [place] # 0.88 x10/UL 0.20 - 1.00 Final EDT 02/29/2024 18:17 EO # 0.28 x10/UL 0.00 - 0.50 Final EDT 02/29/2024 18:17 Baso # 0.03 x10/UL 0.00 - 0.10 Final EDT 02/29/2024 18:17 MANUAL DIFF N/A New Order EDT 02/29/2024 18:17 MORPHOLOGY N/A New Order EDT CMP with eGFR Final SRINI: 02/29/2024 18:02:00 EDT MsgRcvd: 02/29/2024 18:36 EDT Lab Test Result Reference Status Received Comments 4 of 13 Narrative COMPREHENSIVE 02/29/2024 CMP with eGFR Final METABOLIC 18:36 EDT PANEL 02/29/2024 SODIUM 142 mmol/l 136 - 145 Final 18:36 EDT 02/29/2024 POTASSIUM 3.9 mmol/L 3.5 - 5.1 Final 18:36 EDT 02/29/2024 CHLORIDE 104 mmol/L 98 - 107 Final 18:36 EDT 02/29/2024 CO2 27.2 mmol/L 21.0 - 32.0 Final 18:36 EDT 02/29/2024 GLUCOSE 93 mg/dl 74 - 106 Final 18:36 EDT 19 mg/dl 02/29/2024 BUN Above high 7 - 18 Final 18:36 EDT normal 02/29/2024 CREATININE 1.23 mg/dl 0.70 - 1.30 Final 18:36 EDT 02/29/2024 AST/SGOT 17 U/L 15 - 37 Final 18:36 EDT 02/29/2024 ALK PHOS 54 U/L 46 - 116 Final 18:36 EDT 02/29/2024 CALCIUM 9.2 mg/dl 8.5 - 1 (more content not included)... Normal [facility] ED SUPER BILLon 03-04-2024 ED SUPER BILL [id number] [place] [address] [phone] 02/29/2024 Patient: JACKELIN BARNETT Sex: Male : 1985 Age: 39y Item Facility Professional Category Description Code Code Quantity Fee Total Nurse/E/M EMERGENCY 266573 1 $0.00 $0.00 DEPARTMENT VISIT HIGH/URGENT SEVERITY (06576-76) Nurse/IV/IM/Infusion s IVP additional 084358 1 $0.00 $0.00 push (60627) Nurse/IV/IM/Infusion s IVP initial 088824 1 $0.00 $0.00 (19618) Grand Total $0.00 Providers Chalino Dotson D.O. Chief Complaint CHEST PAIN. 1 of 2 [facility] Principal Diagnosis Acute right upper quadrant abdominal pain. Atypical chest pain ICD-10 Codes R07.89: Other chest pain R10.11: Right upper quadrant pain 2 of 2 Normal [facility] ED VISIT SUMMARYon ED VISIT SUMMARY Visit Overview Visit Overview [address] [address] [id number] 02/29/2024 Patient: JACKELIN BARNETT Sex: Male : 1985 Age: 39y 03/04/2024 08:07 PM EST ED Arrival:17:41 02/29/2024 EDT Status: Recent Travel:no Language:eng Adv Directive: Isolation Status: Ethnicity:N Fall Risk:no risk Infectious Disease Exposure:no Measurements:5'11 / 180.3 Self-Harm Status:risk Sepsis Screen:negative cm 300.0 lb / 136.1 kg Chief Complaint:(1000 today) and (side pain) ALLERGIES No Known Drug Allergies HOME MEDICATIONS None PAST MEDICAL HISTORY / PROBLEMS None PAST SURGICAL HISTORY 1 of 3 Visit Overview Appendectomy Carpal Tunnel Surgery Knee Surgery SOCIAL HISTORY Smoking status: No Alcohol use: Yes Drug use: No ED COURSE MEDICATIONS GIVEN IN EMERGENCY DEPARTMENT 20:22 02/29/24 KetorOLAC (Toradol) IVP 30 mg 20:24 02/29/24 MORPHine IVP 4 mg IV SITE INFORMATION INTAKE OUTPUT REASSESMENT (most recent) 18:00 02/29/24. Ambulatory to room. (Pt c/o sudden onset right side pain starting around 1000 this morning. Pt denies recent strain or trauma to the area.). GENERAL / NEURO / PSYCH: Alert. Oriented X 4. Appears in no acute distress. ( Denies diaphoresis.). RESPIRATORY: Respirations not labored. Breath sounds within normal limits. No cough. CVS: Heart sounds within normal limits. Pulses within normal limits. ( Denies chest pain). Capillary refill less than 2 seconds. GI / : The patient has had nausea. Abdomen soft and nontender. No emesis noted. No diarrhea. No CVA tenderness, pain with urination, frequency of urination or urgency of urination. No hematuria. VITAL SIGNS First Vitals Last Vitals Temp 17:46 02/29/24 98.4 F Temp 20:43 02/29/24 BP 17:46 02/29/24 139/81 BP 20:43 02/29/24 114/72 HR 17:46 02/29/24 60 HR 20:43 02/29/24 60 RR 17:46 02/29/24 18 RR 20:43 02/29/24 O2 Sat 17:46 02/29/24 96% O2 Sat 20:43 02/29/24 2 of 3 Visit Overview First Vitals Last Vitals Pain 17:46 02/29/24 6 Pain 20:43 02/29/24 ETCO2 17:46 02/29/24 ETCO2 20:43 02/29/24 GCS 17:46 02/29/24 GCS 20:43 02/29/24 RTS 17:46 02/29/24 RTS 20:43 02/29/24 PROCEDURES NURSING INTERVENTIONS LABS / STUDIES LABS / STUDIES ORDERED CBC w Diff CMP CT ABD/PEL w IV Cont CT Chest PE Study Lactate, Serum Percocet 1 tablet every 6 hours p.r.n. severe pain dispensed 2 Urinalysis CLINICAL IMPRESSION ACUTE RIGHT UPPER QUADRANT ABDOMINAL PAIN ATYPICAL CHEST PAIN 3 of 3 Normal [facility] ED VITALS FLOW SHEETon 03-04 ED VITALS FLOW SHEET Vitals Vital Sign Flow Sheet [address] [address] [id number] 02/29/2024 Patient: JACKELIN BARNETT Sex: Male : 1985 Age: 39y Measurements Wt: 136.1 kg, Ht/Bruno: 71.0 in, BMI: 41.84 Measured Time BP MAP HR RR O2Sat ETCO2 Temp Pain GCS RTS 20:43 02/29/2024 114/72 80 60 17:46 02/29/2024 139/81 100 60 18 96% 98.4 F 6 1 of 1 Normal [facility] US RUQ (GB/PANCREAS)on 03-02 US RUQ (GB/PANCREAS) [address] [address] Patient: JACKELIN BARNETT Phone#: : 1985 Age: 39 Gender: M Pt. Type: Out Account: [id number] Location: [facility] Ordering: ANDREEA PRATT Exam Date: 03/02/2024/6:57 Family Phys: PAM CAMPA Charge Code: [id number] Physician: [place] Order #: [id number] Dose#: PROCEDURE: RUQ (GB) ULTRASOUND COMPARISON: None. INDICATIONS: Right sided pain FINDINGS: LIVER: Normal. Normal size and echotexture. No significant masses. BILIARY: Normal. Normal appearing gallbladder and biliary tree. Common bile duct diameter 4.0 mm. PANCREAS: Pancreas is partially obscured. No visible mass, abnormal atrophy, or ductal dilatation. RIGHT KIDNEY: Normal. No mass or obstruction. OTHER: Negative. CONCLUSION: 1. Normal gallbladder. 2. Pancreas is partially obscured. DICTATED BY: PONCHO PERDOMO MD ON 03/02/2024 AT 9:25 APPROVED BY: PONCHO PERDOMO MD ON 03/02/2024 AT 9:26 Normal [facility] CBC + DIFFon 02-29-2024 Baso # 0.03 x10EE3/UL Normal 0.00 - 0.10 [facility] Comment on above: Performed By: #### 2 [id number] ####[facility],[address] [place] [address] Basophils/100 WBC (Bld) 0.3 % Normal 0.0 - 2.0 [facility] Comment on above: Performed By: #### 2 73652 ####[facility],[address] [place] [address] CBC + DIFF Normal [facility] Comment on above: Result Comment: CBC- COMPLETE BLOOD COUNT Performed By: #### 2 38676 ####[facility],[address] [place] [address] EO # 0.28 x10EE3/UL Normal 0.00 - 0.50 [facility] Comment on above: Performed By: #### 2 93892 ####[facility],[address] [place] [address] Eosinophils/100 WBC (Bld) 2.7 % Normal 0.0 - 7.0 [facility] Comment on above: Performed By: #### 2 81811 ####[facility],[address] [place] [address] Erythrocyte distribution width (RBC) [Ratio] 13.2 % Normal 12.0 - 15.6 [facility] Comment on above: Performed By: #### 2 86922 ####[facility],[address] [place] [address] Hematocrit (Bld) [Volume fraction] 48.6 % Normal 40.0 - 52.0 [facility] Comment on above: Performed By: #### 2 69938 ####[facility],[address] [place] [address] Hemoglobin (Bld) [Mass/Vol] 16.3 g/dL Normal 13.0 - 17.5 [facility] Comment on above: Performed By: #### 2 88005 ####[facility],[address] [place] [address] 17358 Lymph # 3.47 x10EE3/UL High 0.80 - 2.80 [facility] Comment on above: Performed By: #### 2 41183 ####[facility],[address] [place], [place] [address] Lymphocytes/100 WBC (Bld) 33.7 % Normal 20.0 - 45.0 [facility] Comment on above: Performed By: #### 2 68170 ####[facility],[address] [place] [address] 95471 MANUAL DIFF N/A Normal [facility] Comment on above: Performed By: #### 2 85973 ####[facility],[address] [place] [address] MCH (RBC) [Entitic mass] 31 pg Normal 27 - 33 [facility] Comment on above: Performed By: #### 2 75261 ####[facility],[address] [place] [address] MCHC 34 X10 3 Normal 32 - 36 [facility] Comment on above: Performed By: #### 2 73161 ####[facility],[address] [place] [address] MCV (RBC) [Entitic vol] 92 fL Normal 81 - 98 [facility] Comment on above: Performed By: #### 2 15021 ####[facility],[address] [place] [address] [place]al[place] # 0.88 x10EE3/UL Normal 0.20 - 1.00 [facility] Comment on above: Performed By: #### 2 89749 ####[facility],[address] [place] [address] 03143 MONOS % 8.5 % Normal 0.0 - 10.0 [facility] Comment on above: Performed By: #### 2 21652 ####[facility],[address] [place] [address] 22377 Morphology Deven (Bld) [Interp] N/A Normal [facility] Comment on above: Performed By: #### 2 79039 ####[facility],[address] [place] [address] 38035 Neut # 5.65 x10EE3/UL Normal 1.50 - 7.10 [facility] Comment on above: Performed By: #### 2 64214 ####[facility],[address] [place] [address] 75696 Neutrophils/100 WBC (Bld) 54.8 % Normal 46.0 - 76.0 [facility] Comment on above: Performed By: #### 2 30306 ####[facility],[address] [place] [address] 97068 PLATELET 262 x10EE3/UL Normal 150 - 450 [facility] Comment on above: Performed By: #### 2 32653 ####[facility],[address] [place] [address] Platelet mean volume (Bld) [Entitic vol] 8.2 fL Normal 6.4 - 10.5 [facility] Comment on above: Result Comment: AUTO MATED DIFFERENTIAL Performed By: #### 2 72923 ####[facility],[address] [place] [address] 67949 RBC 5.26 x 10EE6/UL Normal 4.50 - 6.00 [facility] Comment on above: Performed By: #### 2 35195 ####[facility],[address] [place] [address] 26322 WBC 10.3 x 10EE3/UL Normal 4.5 - 10.8 [facility] Comment on above: Performed By: #### 2 68789 ####[facility],[address] [place] [address] 24209 CMP with eGFRon 02-29-2024 AGE 39 years Normal [facility] Comment on above: Performed By: #### 2 11588 #### [facility],[address] [place] [address] 65449 Albumin [Mass/Vol] 4.0 g/dL Normal 3.4 - 5.0 [facility] Comment on above: Performed By: #### 2 58082 #### [facility],[address] [place] [address] 66197 Albumin/Globulin [Mass ratio] 1.2 {ratio} Normal 0.9 - 1.6 [facility] Comment on above: Performed By: #### 2 06486 #### [facility],[address] [place] [address]4667 ALK PHOS 54 U/L Normal 46 - 116 [facility] Comment on above: Performed By: #### 2 43340 #### [facility],[address] [place] [address] 84950 ALT [Catalytic activity/Vol] 51 U/L Normal 16 - 63 [facility] Comment on above: Performed By: #### 2 79460 #### [facility],[address] [place] [address] 24487 Anion gap [Moles/Vol] 15 mmol/L Normal 10 - 20 [facility] Comment on above: Performed By: #### 2 08440 #### [facility],[address] [place] [address] 69674 AST [Catalytic activity/Vol] 17 U/L Normal 15 - 37 [facility] Comment on above: Performed By: #### 2 98476 #### [facility],[address] [place] [address] 56238 B/C RATIO 15 ratio Normal 0 - 30 [facility] Comment on above: Performed By: #### 2 03975 #### [facility],[address] [place] [address] 20974 Bilirubin [Mass/Vol] 0.4 mg/dL Normal 0.2 - 1.0 [facility] Comment on above: Performed By: #### 2 68688 #### [facility],[address] [place] [address] 58296 Calcium [Mass/Vol] 9.2 mg/dL Normal 8.5 - 10.1 [facility] Comment on above: Performed By: #### 2 76438 #### [facility],[address] [place], [place] [phone] Chloride [Moles/Vol] 104 mmol/L Normal 98 - 107 [facility] Comment on above: Performed By: #### 2 72398 #### [facility],[address] [place], [place] [phone] CMP with eGFR Normal [facility] Comment on above: Result Comment: COMP REHENSIVE METABOLIC PANEL Performed By: #### 2 50049 #### [facility],[address] [place] [address] CO2 [Moles/Vol] 27.2 mmol/L Normal 21.0 - 32.0 [facility] Comment on above: Performed By: #### 2 06451 #### [facility],[address] [place], [place] [phone] Creatinine [Mass/Vol] 1.23 mg/dL Normal 0.70 - 1.30 [facility] Comment on above: Performed By: #### 2 69478 #### [facility],[address] [place], [place] [address] GFR/1.73 sq M.predicted among non-blacks MDRD (S/P/Bld) [Vol rate/Area] mL/min/{1.73_m2} Normal 60 - 999 [facility] Comment on above: Performed By: #### 2 77014 #### [facility],[address] [place] [address] Result Comment: ACCO RDING TO THE NATIONAL KIDNEY DISEASE EDUCATION PROGRAM(NKDE), A NORMAL eGFR IS A VALUE GREATER THAN OR EQUAL TO 60 ML/MIN/1.73 SQ METERS. CHRONIC KIDNEY DISEASE: <60mL/MIN/1.73 SQ METERS KIDNEY FAILURE: <15mL/MIN/1.73 SQ METERS THIS TEST SHOULD ONLY BE USED FOR PATIENTS 18 YEARS OF AGE AND OLDER. Globulin (S) [Mass/Vol] 3.3 g/dL Normal 1.5 - 3.8 [facility] Comment on above: Performed By: #### 2 06464 #### [address] [address] Glucose [Mass/Vol] 93 mg/dL Normal 74 - 106 [facility] Comment on above: Performed By: #### 2 97885 #### [address] [address] Potassium [Moles/Vol] 3.9 mmol/L Normal 3.5 - 5.1 [facility] Comment on above: Performed By: #### 2 20396 #### [address] [address] Protein [Mass/Vol] 7.3 g/dL Normal 6.4 - 8.2 [facility] Comment on above: Performed By: #### 2 40763 #### [address] [address] Sodium [Moles/Vol] 142 mmol/L Normal 136 - 145 [facility] Comment on above: Performed By: #### 2 44553 #### [address] [address] Urea nitrogen [Mass/Vol] 19 mg/dL High 7 - 18 [facility] Comment on above: Performed By: #### 2 86162 #### [address] [address] [address] ABDOMEN/PELVIS [facility] 2023 CT ABDOMEN/PELVIS [place] [address] Patient: JACKELIN BARNETT Phone#: : 1985 Age: 39 Gender: M Pt. Type: ER Account: [id number] Location: 052 Ordering: CHALINO ARIASER Exam Date: 02/29/2024/18:35 Family Phys: AJAY CAZARES Charge Code: [id number] Physician: [place] Order #: [id number] Dose#: 42.0 PROCEDURE: CT ABDOMEN/PELVIS WITH CONTRAST COMPARISON: [facility], CT, ABDOMEN/PELVIS W W/O CON, 01/21/2020, 7:47. INDICATIONS: Pain. TECHNIQUE: After obtaining the patient's consent, CT images were created with non-ionic intravenous contrast material. All CT scans at this facility use dose modulation, iterative reconstruction, and/or weight based dosing when appropriate to reduce radiation dose to as low as reasonably achievable. IV CONTRAST: Omnipaque 350,100ml TOTAL DOSE: 42.0 CTDIvol(mGy) FINDINGS: LIVER: Normal. No enlargement, atrophy, abnormal density, or significant focal lesion. BILIARY: Gallbladder is present. PANCREAS: Normal. No lesion, fluid collection, ductal dilatation, or atrophy. SPLEEN: Normal. No enlargement or focal lesion. KIDNEYS: Kidneys enhance and excrete contrast symmetrically. No hydronephrosis. ADRENALS: Normal. No mass or enlargement. AORTA/VASCULAR: No aortic aneurysm. RETROPERITONEUM: Normal. No mass or adenopathy. BOWEL/MESENTERY: No bowel obstruction or dilatation. Moderate stool burden. The appendix is not present. ABDOMINAL WALL: Normal. No mass or hernia. URINARY BLADDER: Normal. No visible focal wall thickening, lesion, or calculus. PELVIC NODES: Normal. No adenopathy. PELVIC ORGANS: Normal. No visible mass. Pelvic organs appropriate for patient age. BONES: Normal. No bony lesion or fracture. LUNG BASES: Normal. No visible pulmonary or pleural disease. OTHER: Negative. Continued Report - Page 2 of 2 Patient: JACKELIN BARNETT Phone#: : 1985 Age: 39 Gender: M Pt. Type: ER Account: [id number] Location: 052 Ordering: [employer] Exam Date: 02/29/2024/18:35 Family Phys: AJAY CAZARES Charge Code: [id number] Physician: [place] Order #: [id number] Dose#: 42.0 CONCLUSION: 1. No acute intra-abdominal or pelvic abnormality. Dictated by: Josi Riddle MD on 02/29/2024 at 23:07 Approved by: Josi Riddle MD on 02/29/2024 at 23:14 Normal [facility] CT CHEST (PE PROTOCOL)on CT CHEST (PE PROTOCOL) [place] [address] Patient: JACKELIN BARNETT Phone#: : 1985 Age: 39 Gender: M Pt. Type: ER Account: [id number] Location: [facility] Ordering: CHALINO DOTSON Exam Date: 02/29/2024/18:35 Family Phys: AJAY CAZARES Charge Code: [id number] Physician: [place] Order #: [id number] Dose#: 11.0 PROCEDURE: CT CHEST WITH CONTRAST FOR PE COMPARISON: None. INDICATIONS: Chest pain. TECHNIQUE: After obtaining the patient's consent, CT images were obtained with non-ionic intravenous contrast material. Multi-planar images were created to optimize visualization of vascular anatomy with MPR/MIPS and 3D imaging. All CT scans at this facility use dose modulation, iterative reconstruction, and/or weight based dosing when appropriate to reduce radiation dose to as low as reasonably achievable. IV CONTRAST: Omnipaque 350,100ml TOTAL DOSE: 11.0 CTDIvol(mGy) FINDINGS: VASCULATURE: No pulmonary embolism. AORTA: No aortic aneurysm LUNGS: There are dependent changes MAXINE: Normal. No mass or adenopathy. MEDIASTINUM: Hazy appearance of the anterior mediastinal fat. CARDIAC: Normal. No enlargement, pericardial thickening, or significant calcification. PLEURA: Normal. No mass or effusion. CHEST WALL: Normal. No mass or axillary adenopathy. LIMITED ABDOMEN: Normal. Limited images of the upper abdomen are unremarkable. BONES: There is an ossification adjacent to the glenoid. OTHER: Negative. CONCLUSION: 1. No pulmonary embolism. No acute pulmonary parenchymal abnormality. 2. Hazy appearance of the anterior mediastinal fat, possibly related to the residual thymic tissue. Recommend attention to this area on follow-up imaging. Continued Report - Page 2 of 2 Patient: JACKELIN BARNETT Phone#: : 1985 Age: 39 Gender: M Pt. Type: ER Account: [id number] Location: [facility] Ordering: CHALINO DOTSON Exam Date: 02/29/2024/18:35 Family Phys: AJAY JOELJOEY Charge Code: [id number] Physician: [place] Order #: [id number] Dose#: 11.0 Dictated by: Josi Riddle MD on 02/29/2024 at 22:59 Approved by: Josi Riddle MD on 02/29/2024 at 23:07 Normal [facility] LACTATEon 02-29-2024 Lactate [Moles/Vol] 0.5 mmol/L Normal 0.4 - 2.0 [facility] Comment on above: Performed By: #### 2 06443 ####[facility],[address] [place] [address] URINALYSISon 02-29-2024 Bilirubin Ql (U) Negative Normal NORMAL: NEGATIVE [facility] Comment on above: Performed By: #### 2 90145 #### [facility],[address] [place] [address] Clarity (U) clear Normal NORMAL: CLEAR [facility] Comment on above: Performed By: #### 2 27155 #### [facility],[address] [place] [address]3027 Color (U) yellow Normal NORMAL: YELLOW [facility] Comment on above: Performed By: #### 2 88598 #### [facility],[address] [place] [address] 31478 Glucose Ql (U) NORM Normal NORMAL: NORMAL [facility] Comment on above: Performed By: #### 2 70011 #### [facility],[address] [place] [address] 33328 Hemoglobin Ql (U) Negative Normal NORMAL: NEGATIVE [facility] Comment on above: Performed By: #### 2 85933 #### [facility],[address] [place] [address] 28570 Ketone 5 Abnormal NORMAL: NEGATIVE [facility] Comment on above: Performed By: #### 2 79031 #### [facility],[address] [place] [address] 68332 Leukocytes Negative Normal NORMAL: NEGATIVE [facility] Comment on above: Performed By: #### 2 20770 #### [facility],[address] [place] [address] 61307 Nitrite Ql (U) Negative Normal NORMAL: NEGATIVE [facility] Comment on above: Performed By: #### 2 15267 #### [facility],[address] [place] [address] pH (U) 5 [pH] Normal NORMAL: 5.0-8.0 [facility] Comment on above: Performed By: #### 2 18805 #### [facility],[address] [place] [address] Protein Ql (U) 30 Abnormal NORMAL: NEGATIVE [facility] Comment on above: Performed By: #### 2 02552 #### [facility],[address] [place], [place] [phone] Sp [place] 1.010 Normal NORMAL: 1.010-1.030 [facility] Comment on above: Performed By: #### 2 05412 #### [facility],[address] [place] [address] Specimen Type R Normal [facility] Comment on above: Performed By: #### 2 70291 #### [facility],[address] [place], [place] [phone] Urinalysis dipstick W Reflex Microscopic panel (U) NOT INDICATED Normal [facility] Comment on above: Performed By: #### 2 43123 #### [facility],[address] [place], [place] [address] Urobilinog NORM Normal NORMAL: NORMAL [facility] Comment on above: Performed By: #### 2 88198 #### [facility],[address] [facility] [address] CBC W/Diff, Automatedon 10-3 Absolute Lymph 3.21 X10 3/uL Normal 0.83-4.51 [facility] Comment on above: Performed By: #### L 500.4050, L500.4100, L501.9985, L506.1000, L100.0100, L3100.5310, L503.0105, L501.9520 #### [facility] [address] [place], [address] Absolute Neut 5.5 X10 3/uL Normal 2.0-7.7 [facility] Comment on above: Performed By: #### L 500.4050, L500.4100, L501.9985, L506.1000, L100.0100, L3100.5310, L503.0105, L501.9520 #### [facility] [address] [place], [address] Basophils/100 WBC (Bld) 0.7 % Normal 0-1 [facility] Comment on above: Performed By: #### L 500.4050, L500.4100, L501.9985, L506.1000, L100.0100, L3100.5310, L503.0105, L501.9520 #### [facility] [address] [place], [address] Eosinophils/100 WBC (Bld) 3.3 % Normal 0-5 [facility] Comment on above: Performed By: #### L 500.4050, L500.4100, L501.9985, L506.1000, L100.0100, L3100.5310, L503.0105, L501.9520 #### [facility] [address] [place], [address] Erythrocyte distribution width (RBC) [Ratio] 13.2 % Normal 11.6-14.6 [facility] Comment on above: Performed By: #### L 500.4050, L500.4100, L501.9985, L506.1000, L100.0100, L3100.5310, L503.0105, L501.9520 #### [facility] [address] [place], [address] Hematocrit (Bld) [Volume fraction] 49.3 % Normal 40-54 [facility] Comment on above: Performed By: #### L 500.4050, L500.4100, L501.9985, L506.1000, L100.0100, L3100.5310, L503.0105, L501.9520 #### [facility] [address] [place], [address] Hemoglobin (Bld) [Mass/Vol] 16.1 g/dL Normal 13.0-16.5 [facility] Comment on above: Performed By: #### L 500.4050, L500.4100, L501.9985, L506.1000, L100.0100, L3100.5310, L503.0105, L501.9520 #### [facility] [address] [place], [address] IG% 0.200 Normal 0.0-0.9 [facility] Comment on above: Result Comment: IG% - Immature Granulocytes (promyelocytes, myelocytes and metamyelocytes) > 1% indicates that a LEFT SHIFT is Present. Performed By: #### L 500.4050, L500.4100, L501.9985, L506.1000, L100.0100, L3100.5310, L503.0105, L501.9520 #### [facility] [address] [place], [address] Lymphocytes/100 WBC (Bld) 31.9 % Normal 19-41 [facility] Comment on above: Performed By: #### L 500.4050, L500.4100, L501.9985, L506.1000, L100.0100, L3100.5310, L503.0105, L501.9520 #### [facility] [address] [place], [address] MCH (RBC) [Entitic mass] 30.7 pg Normal 27.0-32.0 [facility] Comment on above: Performed By: #### L 500.4050, L500.4100, L501.9985, L506.1000, L100.0100, L3100.5310, L503.0105, L501.9520 #### [facility] [address] [place], [address] MCHC (RBC) [Mass/Vol] 32.7 g/dL Normal 32-36 [facility] Comment on above: Performed By: #### L 500.4050, L500.4100, L501.9985, L506.1000, L100.0100, L3100.5310, L503.0105, L501.9520 #### [facility] [address] [place], [address] MCV (RBC) [Entitic vol] 93.9 fL Normal 80-94 [facility] Comment on above: Performed By: #### L 500.4050, L500.4100, L501.9985, L506.1000, L100.0100, L3100.5310, L503.0105, L501.9520 #### [facility] [address] [place], [address] Monocytes/100 WBC (Bld) 8.9 % Normal 0-10 [facility] Comment on above: Performed By: #### L 500.4050, L500.4100, L501.9985, L506.1000, L100.0100, L3100.5310, L503.0105, L501.9520 #### [facility] [address] [place], [address] Neutrophils/100 WBC (Bld) 55.0 % Normal 47-70 [facility] Comment on above: Performed By: #### L 500.4050, L500.4100, L501.9985, L506.1000, L100.0100, L3100.5310, L503.0105, L501.9520 #### [facility] [address] [place], [address] Nucleated RBC (Bld) [#/Vol] 0 10*3/uL Normal 0-5 [facility] Comment on above: Performed By: #### L 500.4050, L500.4100, L501.9985, L506.1000, L100.0100, L3100.5310, L503.0105, L501.9520 #### [facility] [address] [facility] [place], [address] Platelet mean volume (Bld) [Entitic vol] 11.0 fL Normal 6.2-12.0 [facility] Comment on above: Performed By: #### L 500.4050, L500.4100, L501.9985, L506.1000, L100.0100, L3100.5310, L503.0105, L501.9520 #### [facility] [address] [place], [address] Platelets (Bld) [#/Vol] 277 10*3/uL Normal 150-450 [facility] Comment on above: Performed By: #### L 500.4050, L500.4100, L501.9985, L506.1000, L100.0100, L3100.5310, L503.0105, L501.9520 #### [facility] [address] [place], [address] RBC (Bld) [#/Vol] 5.25 10*6/uL Normal 4.6-6.2 [facility] Comment on above: Performed By: #### L 500.4050, L500.4100, L501.9985, L506.1000, L100.0100, L3100.5310, L503.0105, L501.9520 #### [facility] [address] [place], [address] RDW SD 45.3 fl High 35.1-43.9 [facility] Comment on above: Performed By: #### L 500.4050, L500.4100, L501.9985, L506.1000, L100.0100, L3100.5310, L503.0105, L501.9520 #### [facility] [address] [place], [address] WBC (Bld) [#/Vol] 10.1 10*3/uL Normal 4.4-11.0 [facility] Comment on above: Performed By: #### L 500.4050, L500.4100, L501.9985, L506.1000, L100.0100, L3100.5310, L503.0105, L501.9520 #### [facility] [address] [place], [address] Comprehensive Metabolic Prof [facility] 02-27-2024 Albumin [Mass/Vol] 3.9 g/dL Normal 3.2-5.0 [facility] Comment on above: Performed By: #### L 500.4050, L500.4100, L501.9985, L506.1000, L100.0100, L3100.5310, L503.0105, L501.9520 #### [facility] [address] [place], [address] Albumin/Globulin [Mass ratio] 1.1 {ratio} Normal 0.9-2.4 [facility] Comment on above: Performed By: #### L 500.4050, L500.4100, L501.9985, L506.1000, L100.0100, L3100.5310, L503.0105, L501.9520 #### [facility] [address] [place], [address] ALK P 56 U/L Normal 45-117 [facility] Comment on above: Performed By: #### L 500.4050, L500.4100, L501.9985, L506.1000, L100.0100, L3100.5310, L503.0105, L501.9520 #### [facility] [address] [place], [address] ALT [Catalytic activity/Vol] 47 U/L Normal 16-61 [facility] Comment on above: Performed By: #### L 500.4050, L500.4100, L501.9985, L506.1000, L100.0100, L3100.5310, L503.0105, L501.9520 #### [facility] [address] [place], [address] AST [Catalytic activity/Vol] 24 U/L Normal 15-37 [facility] Comment on above: Performed By: #### L 500.4050, L500.4100, L501.9985, L506.1000, L100.0100, L3100.5310, L503.0105, L501.9520 #### [facility] [address] [place], [address] Bilirubin [Mass/Vol] 0.30 mg/dL Normal 0.20-1.00 [facility] Comment on above: Result Comment: For patients on eltrombopag therapy, use of Dimension [place] TBIL is not recommended. Performed By: #### L 500.4050, L500.4100, L501.9985, L506.1000, L100.0100, L3100.5310, L503.0105, L501.9520 #### [facility] [address] [place], [address] BUN/CRE 12.8 RATIO Normal 10-20 [facility] Comment on above: Performed By: #### L 500.4050, L500.4100, L501.9985, L506.1000, L100.0100, L3100.5310, L503.0105, L501.9520 #### [facility] [address] [place], [address] CA,Total 9.1 mg/dL Normal 8.5-10.1 [facility] Comment on above: Performed By: #### L 500.4050, L500.4100, L501.9985, L506.1000, L100.0100, L3100.5310, L503.0105, L501.9520 #### [facility] [address] [place], [address] Chloride [Moles/Vol] 108 mmol/L High 98-107 [facility] Comment on above: Performed By: #### L 500.4050, L500.4100, L501.9985, L506.1000, L100.0100, L3100.5310, L503.0105, L501.9520 #### [facility] [address] [place], [address] CO2 [Moles/Vol] 26.0 mmol/L Normal 21.0-32.0 [facility] Comment on above: Performed By: #### L 500.4050, L500.4100, L501.9985, L506.1000, L100.0100, L3100.5310, L503.0105, L501.9520 #### [facility] [address] [place], [address] Creatinine [Mass/Vol] 1.25 mg/dL Normal 0.70-1.30 [facility] Comment on above: Result Comment: The validity of the calculated GFR GFRAA in patients over 70 years has not been determined. Clinical correlation is essential. Performed By: #### L 500.4050, L500.4100, L501.9985, L506.1000, L100.0100, L3100.5310, L503.0105, L501.9520 #### [facility] [address] [place], [address] EST GFR - AA 84 mL/min Normal >60 [facility] Comment on above: Result Comment: Afri can Palauan GFR Calc Performed By: #### L 500.4050, L500.4100, L501.9985, L506.1000, L100.0100, L3100.5310, L503.0105, L501.9520 #### [facility] [address] [place], [place], [id number] GAP 6 Normal 5-15 [facility] Comment on above: Performed By: #### L 500.4050, L500.4100, L501.9985, L506.1000, L100.0100, L3100.5310, L503.0105, L501.9520 #### [facility] [address] [place], [address] GFR/1.73 sq M.predicted among non-blacks MDRD (S/P/Bld) [Vol rate/Area] 69 mL/min/{1.73_m2} Normal >60 [facility] Comment on above: Result Comment: Non- GFR Calc Performed By: #### L 500.4050, L500.4100, L501.9985, L506.1000, L100.0100, L3100.5310, L503.0105, L501.9520 #### [facility] [address] [place], [place], [id number] (317) Globulin (S) [Mass/Vol] 3.6 g/dL Normal 2.2-4.2 [facility] Comment on above: Performed By: #### L 500.4050, L500.4100, L501.9985, L506.1000, L100.0100, L3100.5310, L503.0105, L501.9520 #### [facility] [address] [place], [address] Glucose [Mass/Vol] 88 mg/dL Normal 74-106 [facility] Comment on above: Performed By: #### L 500.4050, L500.4100, L501.9985, L506.1000, L100.0100, L3100.5310, L503.0105, L501.9520 #### [facility] [address] [place], [address] Potassium [Moles/Vol] 3.7 mmol/L Normal 3.5-5.1 [facility] Comment on above: Performed By: #### L 500.4050, L500.4100, L501.9985, L506.1000, L100.0100, L3100.5310, L503.0105, L501.9520 #### [facility] [address] [place], [address] Sodium [Moles/Vol] 140 mmol/L Normal 136-145 [facility] Comment on above: Performed By: #### L 500.4050, L500.4100, L501.9985, L506.1000, L100.0100, L3100.5310, L503.0105, L501.9520 #### [facility] [address] [place], [address] T PROT 7.5 g/dL Normal 6.4-8.2 [facility] Comment on above: Performed By: #### L 500.4050, L500.4100, L501.9985, L506.1000, L100.0100, L3100.5310, L503.0105, L501.9520 #### [facility] [address] [place], [address] Urea nitrogen [Mass/Vol] 16 mg/dL Normal 7-18 [facility] Comment on above: Performed By: #### L 500.4050, L500.4100, L501.9985, L506.1000, L100.0100, L3100.5310, L503.0105, L501.9520 #### [facility] [address] [place], [address] Hemoglobin A1con 02-27-2024 HbA1c (Bld) [Mass fraction] 5.5 % Normal 3.8-5.6 [facility] Comment on above: Result Comment: Norm al < 5.7 % Prediabetic 5.7 - 6.4 % Diabetic >or= 6.5 % Please note range changes. Performed By: #### L 500.4050, L500.4100, L501.9985, L506.1000, L100.0100, L3100.5310, L503.0105, L501.9520 #### [facility] [address] [place], [address] Lipid Profileon 02-27-2024 Cholesterol [Mass/Vol] 217 mg/dL High 200 [facility] Comment on above: Result Comment: <200 mg/dL Desirable 200-240 mg/dL Borderline >240 mg/dL High Risk Performed By: #### L 500.4050, L500.4100, L501.9985, L506.1000, L100.0100, L3100.5310, L503.0105, L501.9520 #### [facility] [address] [place], [address] Cholesterol in HDL [Mass/Vol] 53 mg/dL Normal [facility] Comment on above: Result Comment: The drugs N-Acetylcysteine and Metamizole may falsely depress this assay. Reference Range HDL <40 mg/dL Low HDL Cholesterol HDL >or= 60 mg/dL High HDL Cholesterol Performed By: #### L 500.4050, L500.4100, L501.9985, L506.1000, L100.0100, L3100.5310, L503.0105, L501.9520 #### [facility] [address] [place], [address] Cholesterol in LDL [Mass/Vol] 106 mg/dL Normal 0-130 [facility] Comment on above: Performed By: #### L 500.4050, L500.4100, L501.9985, L506.1000, L100.0100, L3100.5310, L503.0105, L501.9520 #### [facility] [address] [place], [address] Cholesterol in VLDL [Mass/Vol] 58 mg/dL High 5-40 [facility] Comment on above: Performed By: #### L 500.4050, L500.4100, L501.9985, L506.1000, L100.0100, L3100.5310, L503.0105, L501.9520 #### [facility] [address] [place], [address] Triglyceride [Mass/Vol] 290 mg/dL High [facility] Comment on above: Result Comment: The drugs N-Acetylcysteine and Metamizole may falsely depress this assay. Serum Triglycerides Reference Interval Normal <150 mg/dL Borderline high 150 - 199 mg/dL High 200 - 499 mg/dL Very High > or = 500 mg/dL Performed By: #### L 500.4050, L500.4100, L501.9985, L506.1000, L100.0100, L3100.5310, L503.0105, L501.9520 #### [facility] [address] [place], [address] Thyroid Stim Hormone (TSH)on 02-27-2024 TSH 0.804 uIU/mL Normal 0.358-3.740 [facility] Comment on above: Performed By: #### L 500.4050, L500.4100, L501.9985, L506.1000, L100.0100, L3100.5310, L503.0105, L501.9520 #### [facility] [address] [place], [address] Vitamin B12on 02-27-2024 Cobalamin (Vitamin B12) [Mass/Vol] 426 pg/mL Normal 211-911 [facility] Comment on above: Performed By: #### L 500.4050, L500.4100, L501.9985, L506.1000, L100.0100, L3100.5310, L503.0105, L501.9520 #### [facility] [address] [place], [address] Vitamin D,25 Hydroxyon 02-26 Vitamin D 25-OH 13.4 ng/mL Normal [facility] Comment on above: Result Comment: Andreia min D 25(OH) Status Range Deficiency <20 ng/mL (50nmol/L) Insufficiency 20 - 30 ng/mL (50 - 75 nmol/L) Sufficiency 30 - 100 ng/mL (75 - 250 nmol/L) Toxicity >100 ng/mL (>250 nmol/L) Performed By: #### L 500.4050, L500.4100, L501.9985, L506.1000, L100.0100, L3100.5310, L503.0105, L501.9520 #### [facility] [address] [place], [place], [id number] US RENALon 07-20-2022 US RENAL ORIGINAL EXAMINATION: [...] 07/20/2022 8:46:12 AM Ordering Provider: NIKUNJ Pendleton [facility] ([place]) No Panel Informationon 04-24 SKIN TEST INTRADERMAL TB Normal [facility] HEPATITIS B SURFACE AB IMMUN ITY, QNon 04-12-2022 HEPATITIS B SURFACE AB IMMUNITY, QN <5 Low > OR = 10 [facility] Comment on above: Result Comment: Patient does not have immunity to hepatitis B virus. For additional information, please refer to http://[employer]/faq/WIR965 (This link is being provided for informational/ educational purposes only). Performed By: #### 8 138, 5851 #### [facility] [address], [address] [place] [phone] [employer]: David Scott MD #### [id number] #### [facility] [address] [place] [phone] [employer]: Misty Grossman MD,PhD,GALEN MEASLES, MUMPS, AND RUBELLA [...] virus. For additional information, please refer to http://[employer]/faq/XPT779 (This link is being provided for informational/ educational purposes only.) Performed By: #### 8 297, 4848 #### [facility] [address], [address] [place] [address] [employer] Sawyer: David Scott MD #### [id number] #### [facility], [address] [place] [phone] [employer]: Misty Grossman MD,PhD,GALEN MUMPS VIRUS AB (IGG), IMMUNE STATUS <9.00 Low [facility] Comment on above: Result Comment: AU/m L Interpretation ------- <9.00 Not consistent with immunity 9.00-10.99 Equivocal >10.99 Consistent with immunity The presence of mumps IgG antibody suggests immunization or past or current infection with mumps virus. Performed By: #### 8 755, 8371 #### [facility] [address], [address] [place] [address] [employer]yer: David Scott MD #### [id number] #### [facility], [address] [place] [address] [employer] Sawyer: Misty Grossman MD,PhD,GALEN RUBELLA AB (IGG), IMMUNE STATUS 3.27 Index Normal [facility] Comment on above: Result Comment: Inde x Interpretation ----- <0.90 Not consistent with immunity 0.90-0.99 Equivocal > or = 1.00 Consistent with immunity The presence of rubella IgG antibody suggests immunization or past or current infection with rubella virus. Performed By: #### 8 750, 3774 #### [facility] [address], [address] [place] [address] [employer]: David Scott MD #### [id number] #### [facility], [address] [place] [phone] [employer] Saw[employer]: Misty Grossman MD,PhD,GALEN VARICELLA ZOSTER VIRUS AB (I MMUNITY SCR),ACIF (S)on 04-12-2022 VARICELLA ZOSTER VIRUS AB (IMMUNITY SCR),ACIF (S) > or = 1:4 Normal [facility] Comment on above: Result Comment: REFERENCE [...] analytical performance characteristics have been determined by [facility]. It has not been cleared or approved by FDA. This assay has been validated pursuant to the CLIA regulations and is used for clinical purposes. Performed By: #### 8 105, 6772 #### [facility] [address], [address] [place] [address] [employer] Sawyer: David Scott MD #### [id number] #### [facility] [address] [place] [phone] [employer] Saw[employer]: Misty Grossman MD,PhD,GALEN No Panel Informationon 04-10 SKIN TEST INTRADERMAL TB Normal [facility], [facility], [facility]. No Panel Informationon 04-05 HEPATITIS B SURFACE AB IMMUNITY, QN <5 Abnormal [employer] [facility], [facility].; [employer] [facility], [facility]. MEASLES AB (IGG), IMMUNE STATUS 62.90 AU/mL Normal [place] [employer] [facility], [facility].; [facility], [facility]. MUMPS VIRUS AB (IGG), IMMUNE STATUS <9.00 Abnormal [facility], [facility].; [place] [employer] [facility] RUBELLA AB (IGG), IMMUNE STATUS 3.27 {Index} Normal [facility], [facility].; [facility], [employer]. VARICELLA ZOSTER VIRUS AB (IMMUNITY SCR),ACIF (S) > or = 1:4 Normal [facility].; [place] [employer] [facility] Laboratory - Chemistry and C hemistry - challengeon 11-15-2021 Bilirubin Ql (U) Negative Normal [facility]; [facility] Ketones Ql (U) Negative Normal [facility].; [place] [employer] [facility] pH (U) 7.0 [pH] Normal [facility].; [place] [employer] [facility] Specific gravity (U) [Rel density] 1.025 Normal [facility]; [place] [employer] [facility] Urobilinogen Qn (U) 0.2 mg/dL Normal [facility]; [facility]. Laboratory - Hematology and Cell countson 11-15-2021 Hemoglobin Ql (U) Negative Normal [facility].; [place] [employer] [facility] Laboratory - Specimen inform ationon 11-15-2021 Appearance (U) Clear Normal [facility]; [place] [employer] [facility] Color (U) Yellow Normal [facility]; [place] [employer] [facility] Laboratory - Urinalysison Glucose Test strip (U) [Mass/Vol] Negative Normal [facility].; [place] [employer] [facility] Leukocyte esterase Test strip Ql (U) Negative Normal [facility].; [place] [employer] [facility] Nitrite Ql (U) Negative Normal [facility].; [place] [employer] [facility] Protein Ql (U) Negative Normal [facility] [facility].; [place] [employer] [facility] PSA, TOTALon 11-03-2021 PSA, TOTAL 0.60 ng/mL Normal < OR = 4.00 [facility] Comment on above: Result Comment: The total PSA value from this assay system is standardized against the WHO standard. The test result will be approximately 20% lower when compared to the equimolar-standardized total PSA (Sánchez [place]). Comparison of serial PSA results should be interpreted with this fact in mind. This test was performed using the Siemens chemiluminescent method. Values obtained from different assay methods cannot be used interchangeably. PSA levels, regardless of value, should not be interpreted as absolute evidence of the presence or absence of disease. Performed By: #### 5 [id number] #### [facility] [address], [address] [place] [address] [employer]: David Scott MD Laboratory - Chemistry and C hemistry - challengeon 11-02-2021 Bilirubin Ql (U) Negative Normal [facility] [employer], [employer].; [employer], [employer]. Ketones Ql (U) Negative Normal [facility], [employer].; [employer], [employer]. pH (U) 5.5 [pH] Normal [employer].; [employer], [employer]. Specific gravity (U) [Rel density] 1.030 Abnormal [employer].; [employer], [employer]. Urobilinogen Qn (U) 0.2 mg/dL Normal [facility]; [employer], [employer]. Laboratory - Hematology and Cell countson 11-02-2021 Hemoglobin Ql (U) Negative Normal [place] [employer]; [employer], [employer]. Laboratory - Specimen inform ationon 11-02-2021 Appearance (U) Clear Normal [facility] [employer].; [facility] [employer]. Color (U) Yellow Normal [place] [employer]; [employer], [employer]. Laboratory - Urinalysison Glucose Test strip (U) [Mass/Vol] Negative Normal [place] [employer]; [employer], [employer]. Leukocyte esterase Test strip Ql (U) Negative Normal [employer].; [employer], [employer]. Nitrite Ql (U) Negative Normal [facility].; [employer], [employer]. Protein Ql (U) Negative Normal [facility] [employer].; [employer], [employer]. No Panel Informationon 11-02 PSA, TOTAL 0.60 ng/mL Normal [employer].; [employer], [employer]. Laboratory - Chemistry and C hemistry - challengeon 12-23-2019 Calcium [Mass/Vol] 9.8 mg/dL Normal 8.6 - 10. 3 mg/dL [facility].; [facility], [facility]. Chloride [Moles/Vol] 104 mmol/L Normal 98 - 11 0 mmol/L [facility].; [facility], [facility]. Cholesterol [Mass/Vol] 202 mg/dL Abnormal [facility].; [facility], [facility]. Cholesterol in HDL [Mass/Vol] 54 mg/dL Normal [facility].; [facility], [facility] Cholesterol in LDL [Mass/Vol] 122 mg/dL Abnormal [facility].; [place] [employer] [facility], [facility]. CO2 [Moles/Vol] 29 mmol/L Normal 20 - 32 mmol/L [facility].; [facility], [facility]. Creatinine [Mass/Vol] 1.10 mg/dL Normal 0.60 - 1.35 mg/dL [facility].; [facility], [facility]. GFR/1.73 sq M.predicted among blacks MDRD (S/P/Bld) [Vol rate/Area] 102 mL/min/{1.73_m2} Normal [facility], [facility]. Glucose [Mass/Vol] 97 mg/dL Normal 65 - 99 mg/dL [facility], [facility]. Potassium [Moles/Vol] 4.4 mmol/L Normal 3.5 - 5.3 mmol/L [facility], [facility].; [facility], [facility]. Sodium [Moles/Vol] 140 mmol/L Normal 135 - 146 mmol/L [facility].; [facility], [facility]. Triglyceride [Mass/Vol] 146 mg/dL Normal [facility].; [place] [employer] [facility], [facility]. Urea nitrogen [Mass/Vol] 15 mg/dL Normal 7 - 25 mg/dL [facility].; [place] [employer] [facility], [facility]. Laboratory - Hematology and Cell countson 12-23-2019 HbA1c (Bld) [Mass fraction] 5.4 % Normal [facility], [facility].; [place] [employer], [facility]. No Panel Informationon 12-22 BUN/CREATININE RATIO NOT APPLICABLE Normal 6 - 22 [facility].; [place] [employer] [facility], [facility] CHOL/HDLC RATIO 3.7 Normal [facility]; [facility] eGFR NON-AFR. SPANISH 88 Normal [facility]; [facility] NON HDL CHOLESTEROL 148 Abnormal [facility]; [facility] Vital Signs Date Time Vital Sign Value Performing Clinician Facility 07-22-2023 08:15-0400 Body height 179.07 cm Danial Calvillo LPN [facility].; [facility] 07-22-2023 08:15-0400 Body mass index (BMI) [Ratio] 42.58 kg/m2 Danial Calvillo LPN [facility].; [facility] 07-22-2023 08:15-0400 Body surface area Derived from formula 2.5 m2 Danial Calvillo LPN [facility].; [facility] 07-22-2023 08:15-0400 Body weight 136.53 kg Danial Calvillo LPN [facility].; [facility], [facility] 07-22-2023 08:15-0400 Diastolic blood pressure 70 mm[Hg] Danial Calvillo LPN [facility].; [facility]. Comment on above: Patient Position: Sitting; Cuff Location : Left Arm; Cuff Size: Standard 07-22-2023 08:15-0400 Heart rate 64 /min Danial Calvillo LPN [facility].; [facility]. Comment on above: Pattern: Regular 07-22-2023 08:15-0400 Systolic blood pressure 107 mm[Hg] Danial Calvillo LPN [facility].; [facility]. Comment on above: Patient Position: Sitting; Cuff Location : Left Arm; Cuff Size: Standard 12-13-2022 07:59-0400 Body height 179.07 cm Farheen Woods MA [facility], [facility].; [facility]. 12-13-2022 07:59-0400 Body mass index (BMI) [Ratio] 41.59 kg/m2 Farheen Woods MA [facility].; [facility]. 12-13-2022 07:59-0400 Body surface area Derived from formula 2.47 m2 Farheen Woods MA [facility].; [facility]. 12-13-2022 07:59-0400 Body weight 133.36 kg Farheen Woods MA [facility].; [place] [employer] [facility]. 12-13-2022 07:59-0400 Diastolic blood pressure 74 mm[Hg] Farheen Woods [facility].; [place] [employer] Comment on above: Patient Position: Sitting; Cuff Location : Left Arm; Cuff Size: Standard 12-13-2022 07:59-0400 Heart rate 59 /min Farheen Woods [facility]; [place] [employer] Comment on above: Pattern: Regular 12-13-2022 07:59-0400 Systolic blood pressure 124 mm[Hg] Farheen Woods MA [facility].; [place] [employer] Comment on above: Patient Position: Sitting; Cuff Location : Left Arm; Cuff Size: Standard 07-16-2022 10:28-0400 Body height 179.07 cm Celeste Whitney RN [facility].; [place] [employer] [facility]. 07-16-2022 10:28-0400 Body mass index (BMI) [Ratio] 42.58 kg/m2 Celeste Whitney RN [place] [employer] [facility].; [place] [employer], [facility]. 07-16-2022 10:28-0400 Body surface area Derived from formula 2.5 m2 Celeste Whitney RN [facility].; [place] [employer] [facility]. 07-16-2022 10:28-0400 Body weight 136.53 kg Celeste Whitney RN [place] [employer] [facility]; [place] [employer] 07-16-2022 10:28-0400 Diastolic blood pressure 75 mm[Hg] Celeste Whitney RN [place] [employer] [facility].; [employer]. Comment on above: Patient Position: Sitting; Cuff Location : Left Arm; Cuff Size: Standard 07-16-2022 10:28-0400 Heart rate 64 /min Celeste Whitney RN [facility].; [facility]. Comment on above: Pattern: Regular 07-16-2022 10:28-0400 Systolic blood pressure 118 mm[Hg] Celeste Whitney RN [facility].; [facility] Comment on above: Patient Position: Sitting; Cuff Location : Left Arm; Cuff Size: Standard 06-07-2022 10:10-0500 Body height 179.07 cm Leatha Lilly MA [facility].; [facility]. 06-07-2022 10:10-0500 Body mass index (BMI) [Ratio] 42.72 kg/m2 Leatha Lilly MA [facility].; [facility]. 06-07-2022 10:10-0500 Body surface area Derived from formula 2.5 m2 Leatha Lilly MA [facility].; [facility]. 06-07-2022 10:10-0500 Body weight 136.99 kg Leatha Lilly MA [facility].; [place] [employer] [facility]. 06-07-2022 10:10-0500 Diastolic blood pressure 69 mm[Hg] Leatha Lilly MA [facility].; [place] [employer] [facility] Comment on above: Patient Position: Sitting; Cuff Location : Left Arm; Cuff Size: Standard 06-07-2022 10:10-0500 Heart rate 58 /min Leatha Lilly MA [facility].; [place] [employer] Comment on above: Pattern: Regular 06-07-2022 10:10-0500 Systolic blood pressure 113 mm[Hg] Leatha Lilly MA [facility].; [place] [employer] Comment on above: Patient Position: Sitting; Cuff Location : Left Arm; Cuff Size: Standard 05-18-2022 09:15-0500 Body height 179.07 cm Farheen Woods MA [facility].; [place] [employer] 05-18-2022 09:15-0500 Body mass index (BMI) [Ratio] 43 kg/m2 Farheen Woods MA [facility].; [place] [employer] 05-18-2022 09:15-0500 Body surface area Derived from formula 2.51 m2 Farheen Woods MA [facility].; [facility]. 05-18-2022 09:15-0500 Body weight 137.89 kg Farheen Woods MA [facility].; [place] [employer] [facility], [employer] 05-18-2022 09:15-0500 Diastolic blood pressure 78 mm[Hg] Farheen Woods MA [facility].; [employer]. Comment on above: Patient Position: Sitting; Cuff Location : Left Arm; Cuff Size: Standard 05-18-2022 09:15-0500 Heart rate 48 /min Farheen Woods MA [facility]; [place] [employer] Comment on above: Pattern: Regular 05-18-2022 09:15-0500 Systolic blood pressure 127 mm[Hg] Farheen Woods MA [facility]; [place] [employer]. Comment on above: Patient Position: Sitting; Cuff Location : Left Arm; Cuff Size: Standard 04-05-2022 09:50-0500 Body height 179.07 cm Monique Olea MA [facility]; [place] [employer] [facility], [employer]. 04-05-2022 09:50-0500 Body mass index (BMI) [Ratio] 42.58 kg/m2 Monique Olea MA [facility].; [place] [employer] 04-05-2022 09:50-0500 Body surface area Derived from formula 2.5 m2 Monique Olea MA [facility].; [place] [employer] [facility] 04-05-2022 09:50-0500 Body weight 136.53 kg Monique Olea [facility]; [employer]. 04-05-2022 09:50-0500 Diastolic blood pressure 84 mm[Hg] Monique Olea MA [place] [employer] [facility]; [employer]. Comment on above: Patient Position: Sitting; Cuff Location : Left Arm; Cuff Size: Standard 04-05-2022 09:50-0500 Heart rate 51 /min Monique Olea MA [place] [employer] [facility]; [employer]. Comment on above: Pattern: Regular 04-05-2022 09:50-0500 Systolic blood pressure 132 mm[Hg] Monique [facility]a [facility]; [employer]. Comment on above: Patient Position: Sitting; Cuff Location : Left Arm; Cuff Size: Standard 01-25-2022 13:49-0400 Body height 179.07 cm [facility]; [employer]. 01-25-2022 13:49-0400 Body mass index (BMI) [Ratio] 42.15 kg/m2 [facility] [employer] [facility]; [employer]. 01-25-2022 13:49-0400 Body surface area Derived from formula 2.49 m2 [facility] [employer] [facility]; [employer]. 01-25-2022 13:49-0400 Body weight 135.17 kg [facility] [employer] [facility]; [employer]. 01-25-2022 13:49-0400 Diastolic blood pressure 68 mm[Hg] [facility] [employer]; [facility]. Comment on above: Patient Position: Sitting; Cuff Location : Left Arm; Cuff Size: Large 01-25-2022 13:49-0400 Heart rate 71 /min [facility] [employer]; [facility]. Comment on above: Pattern: Regular 01-25-2022 13:49-0400 Systolic blood pressure 108 mm[Hg] [facility] [employer]; [facility]. Comment on above: Patient Position: Sitting; Cuff Location : Left Arm; Cuff Size: Large 11-15-2021 14:36-0400 Body height 179.07 cm [facility] [employer]; [employer]. 11-15-2021 14:36-0400 Body mass index (BMI) [Ratio] 42.44 kg/m2 [facility] [employer]; [employer]. 11-15-2021 14:36-0400 Body surface area Derived from formula 2.49 m2 [facility]; [employer]. 11-15-2021 14:36-0400 Body weight 136.08 kg [facility]; [employer]. 11-15-2021 14:36-0400 Diastolic blood pressure 70 mm[Hg] [facility]; [facility] Comment on above: Patient Position: Sitting; Cuff Location : Right Arm; Cuff Size: Large 11-15-2021 14:36-0400 Heart rate 53 /min [facility]; [facility]. Comment on above: Pattern: Regular 11-15-2021 14:36-0400 Systolic blood pressure 130 mm[Hg] [facility] [employer] [facility]; [facility]. Comment on above: Patient Position: Sitting; Cuff Location : Right Arm; Cuff Size: Large 11-02-2021 14:39-0400 Body height 179.07 cm [facility]; [facility] 11-02-2021 14:39-0400 Body mass index (BMI) [Ratio] 42.44 kg/m2 [facility]; [employer]. 11-02-2021 14:39-0400 Body surface area Derived from formula 2.49 m2 [facility] [employer] [facility]; [employer]. 11-02-2021 14:39-0400 Body temperature 98.9 [degF] [facility] [employer] [facility]; [facility]. Comment on above: Method: Tympanic 11-02-2021 14:39-0400 Body weight 136.08 kg [facility] [employer] [facility]; [employer]. 11-02-2021 14:39-0400 Diastolic blood pressure 75 mm[Hg] [facility].; [facility] Comment on above: Patient Position: Sitting; Cuff Location : Left Arm; Cuff Size: Large 11-02-2021 14:39-0400 Heart rate 78 /min [facility].; [employer]. Comment on above: Pattern: Regular 11-02-2021 14:39-0400 Systolic blood pressure 118 mm[Hg] [facility] [employer]; [employer]. Comment on above: Patient Position: Sitting; Cuff Location : Left Arm; Cuff Size: Large 11-03-2020 09:34-0400 Body height 179.07 cm Rosalba Judson [employer] Work Phone: [place] [employer]; [employer]. 11-03-2020 09:34-0400 Body mass index (BMI) [Ratio] 38.19 kg/m2 Rosalba Judson [employer] Work Phone: [place] [employer]; [employer]. 11-03-2020 09:34-0400 Body surface area Derived from formula 2.38 m2 Rosalba Judson [employer] Work Phone: [facility] [employer]; [employer]. 11-03-2020 09:34-0400 Body weight 122.47 kg Rosalba Judson [employer] Work Phone: [employer].; [employer] 11-03-2020 09:34-0400 Diastolic blood pressure 82 mm[Hg] Rosalba Judson [employer] Work Phone: [facility] [employer] [facility]; [employer]. Comment on above: Patient Position: Sitting; Cuff Location : Left Arm; Cuff Size: Large 11-03-2020 09:34-0400 Heart rate 69 /min Rosalba Judson [employer] Work Phone: [facility] [employer] [facility]; [facility]. Comment on above: Pattern: Regular 11-03-2020 09:34-0400 Systolic blood pressure 136 mm[Hg] Rosalba Judson [employer] Work Phone: [facility]; [facility]. Comment on above: Patient Position: Sitting; Cuff Location : Left Arm; Cuff Size: Large 12-23-2019 09:44-0400 Body height 179.07 cm Rosalba Jassoy [employer] Work Phone: [facility] 12-23-2019 09:44-0400 Body mass index (BMI) [Ratio] 42.3 kg/m2 Rosalba Jassoy [employer] Work Phone: [facility] 12-23-2019 09:44-0400 Body surface area Derived from formula 2.49 m2 Rosalba Roper [employer] Work Phone: [facility] 12-23-2019 09:44-0400 Body weight 135.63 kg Rosalba Roper [employer] Work Phone: [facility] 12-23-2019 09:44-0400 Diastolic blood pressure 62 mm[Hg] Rosalba Jassoy [employer] Work Phone: [facility] Comment on above: Patient Position: Sitting; Cuff Location : Left Arm; Cuff Size: Large 12-23-2019 09:44-0400 Heart rate 57 /min Rosalba Jassoy [employer] Work Phone: [employer]; [facility]. Comment on above: Pattern: Regular 12-23-2019 09:44-0400 Systolic blood pressure 117 mm[Hg] Rosalba Jassoy [employer] Work Phone: [facility] Comment on above: Patient Position: Sitting; Cuff Location : Left Arm; Cuff Size: Large 08-27-2018 15:22-0400 Body height 179.07 cm Rosalba Jassoy [employer] Work Phone: [facility] 08-27-2018 15:22-0400 Body mass index (BMI) [Ratio] 41.02 kg/m2 Rosalba Jassoy [employer] Work Phone: [facility] 08-27-2018 15:22-0400 Body surface area Derived from formula 2.46 m2 Rosalba Judson [employer] Work Phone: [facility] 08-27-2018 15:22-0400 Body weight 131.54 kg Rosalba Judson [employer] Work Phone: [facility] 08-27-2018 15:22-0400 Diastolic blood pressure 83 mm[Hg] Rosalba Judson [employer] Work Phone: [facility] Comment on above: Patient Position: Sitting; Cuff Location : Left Arm; Cuff Size: Standard 08-27-2018 15:22-0400 Systolic blood pressure 128 mm[Hg] Rosalba Judson [employer] Work Phone: [facility] Comment on above: Patient Position: Sitting; Cuff Location : Left Arm; Cuff Size: Standard 07-05-2018 08:29-0500 Body height 179.07 cm Luke Darren PA-C Work Phone: [employer]; [facility] 07-05-2018 08:29-0500 Body mass index (BMI) [Ratio] 41.87 kg/m2 Luke Darren PA-C Work Phone: [facility] 07-05-2018 08:29-0500 Body surface area Derived from formula 2.48 m2 Luke Darren PA-C Work Phone: [facility] 07-05-2018 08:29-0500 Body temperature 100.9 [degF] Luke Darren PA-C Work Phone: [facility] 07-05-2018 08:29-0500 Body weight 134.27 kg Luke Darren PA-C Work Phone: [facility] 07-05-2018 08:29-0500 Diastolic blood pressure 106 mm[Hg] Luke Darren PA-C Work Phone: [facility] Comment on above: Patient Position: Sitting; Cuff Location : Left Arm; Cuff Size: Standard 07-05-2018 08:29-0500 Heart rate 109 /min Luke Darren PA-C Work Phone: [facility] Comment on above: Pattern: Regular 07-05-2018 08:29-0500 Inhaled oxygen concentration 20 % Luke Darren PA-C Work Phone: [facility]. Comment on above: Room air 07-05-2018 08:29-0500 Inhaled oxygen concentration 21 % Luke Darren PA-C Work Phone: [facility] Comment on above: Room air 07-05-2018 08:29-0500 SaO2% (BldA) [Mass fraction] 99 % Luke Darren PA-C Work Phone: [facility] 07-05-2018 08:29-0500 Systolic blood pressure 141 mm[Hg] Luke Darren PA-C Work Phone: [facility] Comment on above: Patient Position: Sitting; Cuff Location : Left Arm; Cuff Size: Standard 05-28-2018 14:22-0500 Body height 179.07 cm [facility] Work Phone: [facility] 05-28-2018 14:22-0500 Body mass index (BMI) [Ratio] 41.87 kg/m2 [facility] Work Phone: [facility] 05-28-2018 14:22-0500 Body surface area Derived from formula 2.48 m2 Rosalba Roper LPN Work Phone: [facility] 05-28-2018 14:22-0500 Body weight 134.27 kg Rosalba Roper LPN Work Phone: [facility] 05-28-2018 14:22-0500 Diastolic blood pressure 78 mm[Hg] Rosalba Judson [employer] Work Phone: [employer]; [facility]. Comment on above: Patient Position: Sitting; Cuff Location : Left Arm; Cuff Size: Large 05-28-2018 14:22-0500 Heart rate 63 /min Rosalba Judson LPN Work Phone: [employer]; [facility]. Comment on above: Pattern: Regular 05-28-2018 14:22-0500 Systolic blood pressure 137 mm[Hg] Rosalba Roper LPN Work Phone: [employer]; [facility]. Comment on above: Patient Position: Sitting; Cuff Location : Left Arm; Cuff Size: Large Encounters Encounter Date Encounter Type Care Provider Facility Start: 03-02-2024 End: 03-02-2024 Telephone follow-up Vincent Banks PA-C Work Phone: [facility] Start: 03-02-2024 End: 03-02-2024 ambulatory ANDREEA LEWIS [facility] Start: 02-29-2024 End: 02-29-2024 Emergency department patient visit AJAY CAZARES [facility] Start: 02-27-2024 End: 02-27-2024 ambulatory Pam Campa [facility] Facility:[facility] Start: 08-15-2023 ambulatory VINCENT BANKS [facility] Start: 07-22-2023 End: 07-22-2023 Office outpatient visit 25 minutes Luke Darren PA-C Work Phone: [employer] Start: 12-13-2022 End: 12-13-2022 Office outpatient visit 15 minutes Luke Darren PA-C Work Phone: [facility] Start: 07-30-2022 End: 07-31-2022 ambulatory NURY LOPEZ [employer] Facility:[facility] Start: 07-30-2022 End: 07-30-2022 Patient encounter procedure NURY LOPEZ [employer] [facility] Start: 07-18-2022 End: 07-19-2022 ambulatory NIKUNJ SNIDER [employer] Facility:[facility] Start: 07-18-2022 End: 07-18-2022 Patient encounter procedure NIKUNJ SNIDER [employer] [facility] Start: 07-16-2022 End: 07-16-2022 Office outpatient visit 15 minutes Luke Darren PA-C Work Phone: [facility] Start: 06-20-2022 End: 06-21-2022 ambulatory NIKUNJ SNIDER [employer] Facility:[facility] Start: 06-20-2022 End: 06-20-2022 Patient encounter procedure NIKUNJ SNIDER [employer]PER[employer] [facility] Start: 06-14-2022 End: 06-14-2022 Orders Luke Darren PA-C Work Phone: [facility] Start: 06-14-2022 End: 06-14-2022 Historical Summary Luke Darren PA-C Work Phone: [facility] Start: 06-07-2022 End: 06-07-2022 Office outpatient visit 15 minutes Luke Darren PA-C Work Phone: [facility] [employer] Start: 05-18-2022 End: 05-18-2022 Office outpatient visit 15 minutes Luke Darren PA-C Work Phone: [employer] Start: 04-24-2022 End: 04-24-2022 Nursing evaluation of patient and report Luke Darren PA-C Work Phone: [employer] Start: 04-12-2022 End: 04-12-2022 Orders Luke Darren PA-C Work Phone: [employer] Start: 04-10-2022 End: 04-10-2022 Nursing evaluation of patient and report Luke Darren PA-C Work Phone: [facility] [employer] [facility] Start: 04-05-2022 End: 04-05-2022 Patient encounter status Luke Darren PA-C Work Phone: [facility] [employer] [facility]; [facility] Start: 04-05-2022 End: 04-05-2022 Periodic preventive med est patient 18-39 yrs Luke Darren PA-C Work Phone: [employer] Start: 04-05-2022 End: 04-05-2022 Physical examination Luke Darren PA-C Work Phone: [facility]; [facility] Start: 01-30-2022 End: 01-30-2022 Medication Luke Darren PA-C Work Phone: [facility] Start: 01-25-2022 End: 01-25-2022 Office outpatient visit 15 minutes Luke Darren PA-C Work Phone: [facility] [employer] Start: 11-15-2021 End: 11-16-2021 Office outpatient visit 15 minutes Luke Darren PA-C Work Phone: [facility] Start: 11-02-2021 End: 11-02-2021 Office outpatient visit 15 minutes Luke Darren PA-C Work Phone: [facility] Start: 11-03-2020 End: 11-03-2020 Patient encounter procedure Luke Darren PA-C Work Phone: [facility] Start: 11-03-2020 End: 11-03-2020 Patient encounter status Rosalba Roper LPN Work Phone: [facility] Start: 09-29-2020 End: 09-29-2020 Orders Luke Darren PA-C Work Phone: [facility] Start: 02-17-2020 End: 02-17-2020 Orders Luke Darren PA-C Work Phone: [facility] Start: 02-17-2020 End: 02-17-2020 Historical Summary Luke Darren PA-C Work Phone: [facility] Start: 12-25-2019 End: 12-25-2019 Historical Summary Luke Darren PA-C Work Phone: [facility] Start: 12-23-2019 End: 12-23-2019 Patient encounter procedure Luke Adrren PA-C Work Phone: [facility] Start: 12-23-2019 End: 12-23-2019 Patient encounter status Luke Darren PA-C Work Phone: [facility] Start: 01-14-2019 End: 01-14-2019 Telephone follow-up Luke Darren PA-C Work Phone: [employer] Start: 08-27-2018 End: 08-27-2018 Patient encounter procedure Luke Darren PA-C Work Phone: [employer] Start: 07-30-2018 End: 07-30-2018 Historical Summary Vincent Liuetler PA-C Work Phone: [employer] Start: 07-05-2018 End: 07-05-2018 Office outpatient visit 15 minutes Jyotike Darren PA-C Work Phone: [employer] Start: 05-28-2018 End: 05-28-2018 Patient encounter procedure Jyotike Darren PA-C Work Phone: [employer] Start: 05-28-2018 End: 05-28-2018 Patient encounter status Vincent JarrettDarren PA-C Work Phone: [employer]; [employer] Procedures Date Procedure Procedure Detail Performing Clinician Start: 02-29-2024 Urinalysis AJAY MARTINEZ Comment on above: Result Comment: URIN ALYSIS Performed By: #### [id number] #### [facility],[address] [place] [address] Start: 06-14-2022 End: 06-14-2022 Lab findings surveillance Celeste sharp RN Comment on above: Normal. 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 ; [facility] Immunizations Immunization Date Immunization Notes Care Provider Gerald mohr 12-13-2022 hepatitis B vaccine, adult dosage Luke Darren PA-C Work Phone: [facility] [employer]; [employer] Comment on above: Site: Right DeltoidV IS Given: * Hepatitis B (02/10/21) 06-07-2022 hepatitis B vaccine, adult dosage Luke Darren PA-C Work Phone: [employer]; [facility]. Comment on above: Site: Right ArmVIS G iven: * Hepatitis B (02/10/21) 04-12-2022 hepatitis B vaccine, adult dosage Luke Darren PA-C Work Phone: [employer]; [employer] Comment on above: Site: Right DeltoidV IS Given: * Hepatitis B (02/10/21) 04-12-2022 measles, mumps and rubella virus vaccine Luke Darren PA-C Work Phone: [employer]; [employer] Comment on above: Site: Right ArmVIS G iven: * MMR Vaccine (Measles, Mumps, and Rubella) (12/02/20) 03-21-2022 COVID-Moderna (Bivalent 50 MCG/0.5 ML IM BST) [facility]-C [facility] 04-27-2021 COVID-Moderna (100 MCG/0.5 ML) Luke Darren PA-C [facility]: [facility] 06-01-2020 COVID-Moderna (100 MCG/0.5 ML) Luke Darren PA-C Work Phone: [facility] 05-06-2020 COVID-Moderna (100 MCG/0.5 ML) Luke Darren PA-C Work Phone: [facility] 04-29-2014 tetanus toxoid, reduced diphtheria toxoid, and acellular pertussis vaccine, adsorbed Luke Darren PA-C Work Phone: [facility] 11-27-1999 measles, mumps and rubella virus vaccine Luke Darren PA-C Work Phone: [facility] Payers Date Payer Category Payer Self-pay 2024 Unknown [id number] 2022 Unknown [id number] 1985 Unknown [id number] [id number] 1985 Unknown [id number] 2.16.8 [id number] 1985 Unknown [id number] 2.16.8 [id number] 1985 Unknown [id number] 2.16.8 [id number] 1985 Unknown [id number] 2.16.8 [id number] 1985 Unknown [id number] 2.16.8 [id number] Unknown [id number] 2.16.8 [id number] Social History Date Type Detail Facility Start: 06-20-2022 Tobacco smoking status Never s moked tobacco (finding) [facility] Sex Assigned At Male [facility] Current Work/Study Status Current Work/Study Status [employer] Tobacco Use: Tobacco Use: ; N ever smoker. [employer]; [employer] Mental Status Date Assessment Result Facility Memory loss [employer] [facility]; [facility] Clinical Note 03-04-2024 Note Date & Type Note Facility 03-04-2024 Note Discharge Instructio ns Discharge Summary [address] [address] [id number] 02/29/2024 Patient: JACKELIN BARNETT Sex: Male : 1985 Age: 39y Thank you for visiting [facility]. You have been evaluated today by Chalino Dotson D.O. for the following condition(s): Principal Diagnosis Acute right upper quadrant abdominal pain. Atypical chest pain INSTRUCTIONS Prescription Medications: Percocet 5 mg-325 mg tablet: Take 1 tablet by mouth every six to eight hours as needed for pain for 5 days, dispense 10 tablet. Refills 0. Pharmacy: [facility] [phone] [place] [address]. Follow-up: Follow up with your doctor in three days. Call for an appointment. You have been given the following additional information: Noncardiac Chest Pain Unknown Causes of Abdominal Pain (Male) Patient Signature 1 of 6 Discharge Instructions Facility [employer] Date/Time General Instructions with [employer]Writer [address] [address] [id number] 02/29/2024 Patient: ANIBAL JACKELIN Sex: Male : 1985 Age: 39y Thank you for visiting [facility]. You have been evaluated today by Chalino Dotson D.O. for the following condition(s): Principal Diagnosis Acute right upper quadrant abdominal pain. Atypical chest pain INSTRUCTIONS Prescription Medications: Percocet 5 mg-325 mg tablet: Take 1 tablet by mouth every six to eight hours as needed for pain for 5 days, dispense 10 tablet. Refills 0. Pharmacy: [facility] [id number] [id number]. Follow-up: Follow up with your doctor in three days. Call for an appointment. ADDITIONAL INFORMATION 2 of 6 Discharge Instructions Noncardiac Chest Pain Based on your visit today, the healthcare provider doesn't know what is causing your chest pain. In most cases, people who come to the emergency room with chest pain don't have a problem with their heart. Instead, the pain is caused by other conditions. It's important for the healthcare team to be sure you are not having a life-threatening cause for chest pain such as: Heart attack Blood clot in the lungs Collapsed lung Ruptured esophagus Tearing of the aorta Once these major causes have been ruled out, you may have further evaluation for nonheart causes of chest pain. These may be problems with the lungs, muscles, bones, digestive tract, nerves, or mental health. They include: Inflammation around the lungs (pleurisy) Collapsed lung (pneumothorax) Fluid around the lungs (pleural effusion) Lung cancer (a rare cause of chest pain) Inflamed cartilage between the ribs (costochondritis) Fibromyalgia Rheumatoid arthritis Chest wall strain Reflux Stomach ulcer Spasms of the esophagus 3 of 6 Discharge Instructions Gall stones Gallbladder inflammation Panic or anxiety attacks Emotional distress Your condition doesn't seem serious. And your pain doesn't seem to be coming from your heart. But sometimes the signs of a serious problem take more time to appear. Watch for the warning signs listed below. Home care Follow these guidelines when caring for yourself at home: Rest today and don't do any strenuous activity. Take any prescribed medicine as directed. Follow-up care Follow up with your healthcare provider, or as advised, if you don't start to feel better in 24 hours. Call 911 Call 911 if any of these occur: A change in the type of pain: if it feels different, becomes more severe, lasts longer, or begins to spread into your shoulder, arm, neck, jaw or back Shortness of breath or increased pain with breathing Weakness, dizziness, or fainting Rapid heart beat Crushing sensation in your chest When to seek medical advice Call your healthcare provider right away if any of these occur: Cough with dark colored sputum (phlegm) or blood Fever of 100.4F (38C) or higher, or as directed by your healthcare provider Swelling, pain or redness in one leg 4 of 6 Discharge Instructions Unknown Causes of Abdominal Pain (Male) Based on your visit today, the exact cause of your abdominal pain is not clear. Your exam and tests don't suggest a dangerous cause at this time. However, the signs of a serious problem may take more time to appear. Although your evaluation was reassuring today, sometimes early in the course of many conditions, exam and lab tests can appear normal. Therefore, it is important for you to watch for any new symptoms or worsening of your condition. It may not be obvious what caused your symptoms. Pay attention to things that do seem to make your symptoms worse or bett (more content not included)... [facility] Evaluation + Plan note Radiology Note Date & Type Note Facility Evaluation + Plan note Future Scheduled TestsUS Renal 07/18/22 [facility] Evaluation + Plan note Note Date & Type Note Facility Evaluation + Plan note Future Appointments Appointment Date:07/30/2022 01:40:00 PM Scheduled Provider:NURY LOPEZ Location:UROLOGY Appointment Type:[facility]O [facility] Hospital course Narrative Note Date & Type Note Facility Hospital course Narrative No data available for this section [facility] Hospital Discharge instructions Note Date & Type Note Facility Hospital Discharge instructions No data available for this section [facility] Progress note Note Date & Type Note Facility Progress note No data available for this section [facility] Summary Purpose Family History No Family History Records Found Father Status:Active Comments:In good health. Kidney Disease [...] Records FoundNo Status Records FoundNo Status Records FoundNo Status Records Found INFORMATION SOURCE (unrecogn ized section and content) DATE CREATED AUTHOR 04/19/2022 [facility] DATE CREATED AUTHOR AUTHOR'S ORGANIZ ATION 08/05/2022 [facility] ([place]) DATE CREATED AUTHOR AUTHOR'S ORGANIZ ATION 03/06/2024 [facility] DATE CREATED AUTHOR AUTHOR'S ORGANIZ ATION 03/20/2024 [facility] Care Team (unrecognized sect ion and content) Care Team Personnel Name: AJAY CAZARES MD Member Role: Primary Care Physician Address: Address: [address] [place] [address] [address] Care Team Related Persons Name: JODY YEPEZ Patient Care team informatio n (unrecognized section and content) Care Team Personnel Name: AJAY CAZARES MD Member Role: Primary Care Physician Address: Address: [address] [place] [address] [address] Care Team Related Persons Name: JODY YEPEZ Care Team Personnel Name: AJAY CAZARES MD Member Role: Primary Care Physician Address: Address: [address] [place] [address] [address]EMA [address] Care Team Related Persons Name: JODY [...] BE BASED ON THE PRIMARY CLINICAL RECORDS. [address] [facility]. provides no warranty or guarantee of the accuracy or completeness of information in this document.
[2024-11-25 12:58] LABS: Cholesterol 186 mg/dL (<=200); Low Density Lipoprotein Calc. 116 mg/dL; Triglycerides 73 mg/dL; Very Low Density Lipoprotein 15 mg/dL (5-40); cholesterol:hdl ratio screen 3.36
[2024-11-25 13:01] LABS: AST(SGOT) 30 U/L (<=37); Alanine Aminotransfer ALT/SGPT 25 U/L (<=46); Albumin, Serum 4.5 g/dL (3.5-5.0); Alkaline Phosphatase 53 U/L (40-129); Anion Gap 14 (5-15); BUN 16 mg/dL (4-19); BUN/Creat Ratio 12.9 RATIO (10-20); Calcium,Total 10.3 mg/dL (7.6-11.0); Carbon Dioxide 18.9 mmol/L (21.0-32.0); Chloride 105 mmol/L (98-108); Globulin 3.2 g/dL (2.2-4.2); Glucose 85 mg/dL (70-99); Potassium 4.7 mmol/L (3.3-5.1)
[2024-11-30 12:09] LABS: Testosterone, % Free 3.70 % (1.50-4.20); Testosterone, Free 15.58 ng/dL (5.00-21.00)
== END | disposition home or self-care (01) ==
LOC: VSLAB 09:45
PROVIDERS: PCP Nurse Practitioner Family; Visit Provider Nurse Practitioner Family
DX: E29.1 Testicular hypofunction (principal); G47.33 Obstructive sleep apnea (adult) (pediatric)
CPT/HCPCS: 36415; 80053; 80061; 84402; 84403